=== PATIENT | female | born 1960 | race Caucasian/White ===

== ENCOUNTER 2016-03-15 11:07 | Outpatient (CLI) | payer MEDICAID ==
[~2016-03-15] VITALS: Ht 165.1 cm; Wt 87.2 kg
[~2016-03-15 11:07] MED LIST: ACYC400T21 PO; AMIT25TA9 PO; CITA20TA7 PO; D50KC PO; FURO40TA4 PO; HYDR-3812 PO; LACT20SO2 PO; LISI-552 PO; METF500T8 PO; MTF500T PO; MULT-35 PO; NAPR220T66 PO; ONDA4TAB10 PO; Oxycodone Hcl PO; POLY255P PO; PRD20T PO
--- OUTSIDE RECORDS SUMMARY | 2016-03-15 11:11 | XMS REPORT | Continuity of Care Document ---
Author Author [facility] Organization [facility] Address Unknown Phone Unavailable Care Team Providers Care Ultrasonic Solderer Name Role Phone Mouna Wang PCP [phone] Source Comments Some departments are not documenting in the electronic medical record. If you do not see the information that you expected, contact Release of Information in the Health Information Management department at [phone] for further assistance in locating additional records.[facility] Active Allergies and Adverse Reactions No Known Allergies Current Medications Prescription Sig. Disp. Refills Start End Date Status Date metFORMIN-XR(+) Take 500 mg by mouth Active (GLUCOPHAGE XR) 500 mg daily with dinner. extended release tablet furosemide (LASIX) 40 mg Take 40 mg by mouth twice Active tablet daily. lisinopril (PRINIVIL; Take 20 mg by mouth Active ZESTRIL) 20 mg tablet daily. citalopram (CELEXA) 20 mg Take 20 mg by mouth Active tablet daily. PEG 3350-Electrolytes Mix as directed on 4000 mL 0 11/20/19 Active (GOLYTELY) oral solution package. Drink 240ml 16 (8oz) every 10 minutes until gone. Refrigerate once mixed. spironolactone Take 1 Tab by mouth 30 Tab 5 11/30/19 Active (ALDACTONE) 100 mg tablet daily. Take with food. 16 ergocalciferol (VITAMIN Take 1 Cap by mouth twice 8 Cap 2 11/30/19 02/19/20 D-2) 50,000 unit capsule weekly for 24 doses. 16 16 Indications: VITAMIN D DEFICIENCY (HIGH DOSE THERAPY) Active Problems Problem Noted Date Ascites of liver 11/23/2015 Type 2 diabetes mellitus without complication (HCC) 11/23/2015 Tobacco abuse 11/23/2015 Localized edema 11/23/2015 Cirrhosis, cryptogenic (HCC) 11/20/2015 Most Recent Encounters Date Type Specialty Providers Description 12/17/2015 Hospital Adilene Amor APRN Other cirrhosis of liver Encounter 12/17/2015 Endo [facility] Mouna Albert ARNP 12/17/2015 Endo Rslt Mouna Albert ARNP 12/17/[address] Mann MD Event 12/17/2015 Surgery Rhonda Ellison MD COLONOSCOPY EXCISION LESION 12/16/2015 Documentation Transplant Surgery Renetta Johnston MD 12/16/2015 Telephone Transplant Surgery Kavitha Finn, [facility] Only 12/15/2015 Telephone Transplant Surgery Renetta Johnston MD Patient Questions - Pt returned my call from 12/14/15 and she confirmed EGD/Colonoscopy appt for 12/17/15 and that she received the instructions. Checked with pt about dates and times of scheduling her Dexa and US Abd at [facility]. Will call the pt with information. RP 12/14/2015 Telephone Transplant Surgery Renetta Johnston MD Patient Reminder Call - Called pt to confirm EGD/Colonoscopy appt for 12/17/15 at 3:50 p.m., nalm on both phones. Also, need to confirm dates and times for DEXA scan and US Abd in December [facility]. RP Social History Tobacco Use Types Packs/Day Years Used Date Current Every Day Smoker Cigarettes 0.5 Tobacco Cessation: Ready to Quit: Yes; Counseling Given: Yes Comments: Alcohol Use Drinks/Week oz/Week Comments No 0 Standard 0.0 drinks or equivalent Last Filed Vital Signs Vital Sign Reading Time Taken Blood Pressure 99/49 12/17/2015 4:21 PM CDT Pulse 71 12/17/2015 4:21 PM CDT Temperature 36.9 C (98.4 F) 12/17/2015 2:55 PM CDT Respiratory Rate - - Height 1.676 m (5' 6") 12/17/2015 3:01 PM CDT Weight 88.451 kg (195 lb) 12/17/2015 3:01 PM CDT Body Mass Index 31.49 12/17/2015 3:01 PM CDT Oxygen Saturation 100% 12/17/2015 4:21 PM CDT Plan of Care Date Type Specialty Providers Description 03/25/2016 Appointment Transplant Surgery Renetta Johnston MD [address] [place] [address] [phone] (Fax) Health Maintenance Due Date Last Done Comments Hepatitis C Screening 1960 Physical (Comprehensive) 1969 Exam Pertussis Vaccine 1973 Tetanus Vaccine 05/26/1979 Dilated Eye Exam 1980 Foot Exam 1980 Microalbumin 1980 Pneumonia Vaccine (Dm) 1980 Cervical Cancer Screening 05/26/1983 Breast Cancer Screening 2002 Influenza Vaccine 11/12/2015 Hba1c 05/19/2016 11/20/2015 Colorectal Cancer 12/16/2025 12/17/2015, 12/17/2015, 12/17/2015 Screening Procedures from Last 3 Months Procedure Name Priority Date/Time Associated Diagnosis Comments COLONOSCOPY EXCISION 12/17/2015 Colon cancer screening LESION 3:50 PM CDT Special Needs 1st Call - EGD / Colonoscop y - Cld pt & sched appt 11/23/15 @ 1216 / Pt is aware she is w/Dr Ellison COLONOSCOPY 12/17/2015 Colon cancer screening 3:50 PM CDT Special Needs 1st Call - EGD / Colonoscop y - Cld pt & sched appt 11/23/15 @ 1216 / Pt is aware she is w/Dr Ellison ESOPHAGOGASTRODUODENOSCOP 12/17/2015 Colon cancer screening Y 3:50 PM CDT Special Needs 1st Call - EGD / Colonoscop y - Cld pt & sched appt 11/23/15 @ 1216 / Pt is aware she is w/Dr Ellison Results from Last 3 Months COLONOSCOPY (12/17/2015 3:22 PM) Component Value Range Provation Report Patient Name: Henrry Mcfarlane Procedure Date: 12/17/2015 3:22 PM CSN: [id number] Date of : 1960 Gender: Female Attending Physician: Rhonda Ellison MD Procedure: Colonoscopy Indications: Sc reening for colorectal malignant neoplasm Providers: Rhonda Ellison MD (Doctor), Boris Tatum RN (Nurse), Tamiko Molina Supercalender Operator (Supercalender Operator) Referring Physician: Adilene Pelaez Medications: Pr opofol per Anesthesia Complications: No immediate complications. Estimated blood loss: Minimal. Procedure: Pre-Anesthesia Assessment: - Prior to the procedure, a History and Physical was performed, and patient medications, allergies and sensitivities were reviewed. The patient's tolerance of previous anesthesia was reviewed. - The risks and benefits of the procedure and the sedation options and risks were discussed with the patient. All questions were answered and informed consent was obtained. - Patient identification and proposed procedure were verified prior to the procedure by the physician and the nurse. The procedure was verified in the procedure room. - Prior to the procedure, a History and Physical was performed, and patient medications and allergies were reviewed. The patient's tolerance of previous anesthesia was also reviewed. The risks and benefits of the procedure and the sedation options and risks were discussed with the patient. All questions were answered, and informed consent was obtained. Prior Anticoagulants: The patient has taken no previous anticoagulant or antiplatelet agents. ASA Grade Assessment: IV - A patient with severe systemic disease that is a constant threat to life. After reviewing the risks and benefits, the patient was deemed in satisfactory condition to undergo the procedure. After I obtained informed consent, the scope was passed under direct vision. Throughout the procedure, the patient's blood pressure, pulse, and oxygen saturations were monitored continuously. The Colonoscope [id number] was introduced through the anus and advanced to the cecum, identified by appendiceal orifice and ileocecal valve. The colonoscopy was performed without difficulty. The patient tolerated the procedure well. The quality of the bowel preparation was good. The ileocecal valve, appendiceal orifice, and rectum were photographed. Findings: The perianal and digital rectal examinations were normal. A diminutive polyp was found in the sigmoid colon. The polyp was sessile. The polyp was removed with a cold biopsy forceps. Resection and retrieval were complete. The entire examined colon appeared otherwise normal on direct and retroflexion views. Impression: - One diminutive polyp in the sigmoid colon. Resected and retrieved. - The entire examined colon is normal on direct and retroflexion views. Estimated Blood Loss: Estimated blood loss was minimal. Recommendation: - Discharge patient to home (ambulatory). - Resume previous diet today. - Continue present medications. - Await pathology results. - Repeat colonoscopy in 3 - 5 years for surveillance based on pathology results. - Return to referring physician as previously scheduled. Scope In: 3:24:06 PM Scope Out: 3:44:52 PM Scope Withdrawal Time 0 hours 13 minutes 48 seconds Total Procedure Duration Time 0 hours 20 minutes 46 seconds Procedure Code(s): --- Professional --- 18384, Colonoscopy, flexible; with biopsy, single or multiple Diagnosis Code(s): --- Professional --- Z12.11, Encounter for screening for malignant neoplasm of colon D12.5, Benign neoplasm of sigmoid colon CPT copyright 2015 [employer]. All rights reserved. The codes documented in this report are preliminary and upon clinical research specialist review may be revised to meet current compliance requirements. Attending Participation: I personally performed the entire procedure. MD Rhonda Saleem MD 12/17/2015 3:51:27 PM The attending physician has electronically signed and finalized this document. Number of Addenda: 0 Note Initiated On: 12/17/2015 3:22 PM EGD (12/17/2015 3:09 PM) Component Value Range Provation Report Patient Name: Henrry Mcfarlane Procedure Date: 12/17/2015 3:09 PM CSN: [id number] Date of : 1960 Gender: Female Attending Physician: Rhonda Ellison MD Procedure: Upper GI endoscopy Indications: Ci rrhosis rule out esophageal varices Providers: Rhonda Ellison MD (Doctor), Boris Tatum RN (Nurse), Edson Ortizician (Supercalender Operator) Referring Physician: Adilene Pelaez Medications: Pr opofol per Anesthesia Complications: No immediate complications. Estimated blood loss: None. Procedure: Pre-Anesthesia Assessment: - Prior to the procedure, a History and Physical was performed, and patient medications, allergies and sensitivities were reviewed. The patient's tolerance of previous anesthesia was reviewed. - The risks and benefits of the procedure and the sedation options and risks were discussed with the patient. All questions were answered and informed consent was obtained. - Patient identification and proposed procedure were verified prior to the procedure by the physician and the nurse. The procedure was verified in the procedure room. - Prior to the procedure, a History and Physical was performed, and patient medications and allergies were reviewed. The patient's tolerance of previous anesthesia was also reviewed. The risks and benefits of the procedure and the sedation options and risks were discussed with the patient. All questions were answered, and informed consent was obtained. Prior Anticoagulants: The patient has taken no previous anticoagulant or antiplatelet agents. ASA Grade Assessment: IV - A patient with severe systemic disease that is a constant threat to life. After reviewing the risks and benefits, the patient was deemed in satisfactory condition to undergo the procedure. After obtaining informed consent, the endoscope was passed under direct vision. Throughout the procedure, the patient's blood pressure, pulse, and oxygen saturations were monitored continuously. The Endoscope 6587 was introduced through the mouth, and advanced to the third part of duodenum. The upper GI endoscopy was accomplished without difficulty. The patient tolerated the procedure well. Findings: Grade II varices were found in the lower third of the esophagus. They were medium in size. No stigmata of recent bleeding or high risk features. Mild portal hypertensive gastropathy was found in the entire examined stomach. No gastric varices identified. The examined duodenum was normal. Impression: - Grade II esophageal varices. - Portal hypertensive gastropathy. No gastric varices. - Normal examined duodenum. - No specimens collected. Estimated Blood Loss: Estimated blood loss: none. Recommendation: - Discharge patient to home (ambulatory). - Resume previous diet today. - Continue present medications. - Repeat the upper endoscopy in 1 year for surveillance. - Return to liver clinic as previously scheduled. - Patient has a contact number available for emergencies. The signs and symptoms of potential delayed complications were discussed with the patient. Return to normal activities tomorrow. Written discharge instructions were provided to the patient. - Return to normal activities tomorrow. Scope In: 3:14:10 PM Scope Out: 3:19:34 PM Total Procedure Duration Time 0 hours 5 minutes 24 seconds Procedure Code(s): --- Professional --- 87233, Esophagogastroduodenoscopy, flexible, transoral; diagnostic, including collection of specimen(s) by brushing or washing, when performed (separate procedure) Diagnosis Code(s): --- Professional --- K74.60, Unspecified cirrhosis of liver I85.10, Secondary esophageal varices without bleeding K76.6, Portal hypertension K31.89, Other diseases of stomach and duodenum CPT copyright 2015 [employer]. All rights reserved. The codes documented in this report are preliminary and upon clinical research specialist review may be revised to meet current compliance requirements. Attending Participation: I personally performed the entire procedure. MD Rhonda Saleem MD 12/17/2015 3:57:46 PM The attending physician has electronically signed and finalized this document. Number of Addenda: 0 Note Initiated On: 12/17/2015 3:09 PM POC GLUCOSE (12/17/2015 2:58 PM) Component Value Range Glucose, POC 95 70-100 MG/DL FERRITIN (12/17/2015 1:47 PM) Component Value Range Ferritin 57 10-200 NG/ML Specimen Blood BASIC METABOLIC PANEL (12/17/2015 1:47 PM) Component Value Range Sodium 134 (L) 137-147 MMOL/L Potassium 3.7 3.5-5.1 MMOL/L Chloride 101 98-110 MMOL/L CO2 26 21-30 MMOL/L Anion Gap 7 3-12 Glucose 104 (H) 70-100 MG/DL Blood Urea Nitrogen 7 7-25 MG/DL Creatinine 0.55 0.4-1.00 MG/DL Calcium 8.3 (L) 8.5-10.6 MG/DL eGFR Non >60Comment: >60 mL/min The eGFR is not validated for use in drug dosing adjustments. Continue to use estimated creatinine clearance per dosing reference text. Please contact the Clinical Pharmacist for questions. eGFR >60Comment: >60 mL/min The eGFR is not validated for use in drug dosing adjustments. Continue to use estimated creatinine clearance per dosing reference text. Please contact the Clinical Pharmacist for questions. Specimen Blood SURGICAL PATHOLOGY (12/17/2015 7:53 AM) Component Value Range PATHOLOGY REPORT [facility] [email or web address] Minna Noel MD, PhD, Director of Anatomic Pathology Department of Pathology and Laboratory Medicine [address] [place] [id number] Surgical Pathology Office: [phone] SURGICAL PATHOLOGY REPORT NAME: MAEVE MODI SURG PATH #: [id number] MR #: [id number] SPECIMEN CLASS: SR BILLING #: [id number] ALT ID #: LOCATION: [facility] DATE OF PROCEDURE: 12/17/2015 AGE: 55 SEX: F DATE RECEIVED: 12/18/2015 : 1960 TIME RECEIVED: 07:53 PHYSICIAN: RHONDA ELLISON DATE OF REPORT: 12/21/2015 COPY TO: DATE OF PRINTIN12/21/2015 ################################################## ###################### Final Diagnosis: A. Colonic mucosa, "sigmoid polyp", biopsy: Hyperplastic polyp. Attestation: By this signature, I attest that I have personally formulated the final interpretation expressed in this report and that the above diagnosis is based upon my examination of the slides and/or other material indicated in this report. +++Electronically Signed Out By+++ gt/12/18/2015 Interpreted by: Nehemiah Kilgore M.D. Resident 12/21/2015 ################################################## ###################### Material Received: A: sigmoid polyp History: 55-year-old female with a history of colon cancer screening, cirrhosis, cryptogenic. Gross Description: A. Received in formalin labeled "sigmoid polyp" is a 0.6 x 0.5 x 0.3 cm aggregate of holliday-brown soft tissue fragments. The specimen is entirely submitted in cassette A1. (tn) holliday/12/18/2015 Pablo Castrejon M.D. Resident
[2016-03-15] MEDS ORDERED: BUPR-42 PO (16:04)
[2016-03-16] MEDS ORDERED: PANT40TA2 PO (12:27)
== END 2016-03-15 16:06 ==
LOC: PREOP 11:07
PROVIDERS: ATTEND Surgery Pediatric Surgery
DX: Z01.818 Encounter for other preprocedural examination (principal); R19.8 Other specified symptoms and signs involving the digestive system and abdomen; R10.9 Unspecified abdominal pain; R11.2 Nausea with vomiting, unspecified

== ENCOUNTER 2016-03-16 09:38 | Day surgery (SDC) | payer MEDICAID ==
[~2016-03-16] VITALS: Ht 165.1 cm; Wt 87.2 kg
[~2016-03-16 09:38] MED LIST changes: +BUPR-42 PO
--- OUTSIDE RECORDS SUMMARY | 2016-03-16 09:42 | XMS REPORT | Continuity of Care Document ---
Author Author [facility] Organization [facility] Address Unknown Phone Unavailable Care Team Providers Care Air Hammer Stripper Name Role Phone Mouna Wang PCP [phone] Source Comments Some departments are not documenting in the electronic medical record. If you do not see the information that you expected, contact Release of Information in the Health Information Management department at [phone] for further assistance in locating additional records.[facility] Active Allergies and Adverse Reactions No Known [...] Johnston MD 12/16/2015 Telephone Transplant Surgery Kavitha Finn RN Labs Only 12/15/2015 Telephone Transplant Surgery Renetta Johnston MD Patient Questions - Pt returned my call from 12/14/15 and she confirmed EGD/Colonoscopy appt for 12/17/15 and that she received the instructions. Checked with pt about dates and times of scheduling her Dexa and US Abd at [facility]. Will call the pt with information. RP Social History Tobacco Use Types Packs/Day [...] Appointment Transplant Surgery Renetta Johnston MD [address] [place] [address] [phone] (Fax) Health Maintenance Due Date Last Done [...] Mcfarlane Procedure Date: 12/17/2015 3:22 PM CSN: [id number] Date of : 1960 Gender: Female Attending Physician: Rhonda Ellison MD Procedure: Colonoscopy Indications: Sc reening for colorectal malignant neoplasm Providers: Rhonda Ellison MD (Doctor), Boris Tatum RN (Nurse), Tamiko Molina Incinerator Plant Laborer (Incinerator Plant Laborer) Referring Physician: Adilene Pelaez Medications: Pr opofol [...] 46 seconds Procedure Code(s): --- Professional --- 40829, Colonoscopy, flexible; with biopsy, single or multiple Diagnosis Code(s): --- Professional --- Z12.11, Encounter for screening for malignant neoplasm of colon D12.5, Benign neoplasm of sigmoid colon CPT copyright 2015 [employer]. All rights reserved. The codes documented in this report are preliminary and upon irish moss operator review may be revised to meet current compliance requirements. Attending Participation: I personally performed the entire procedure. MD Rhonda Saleem MD 12/17/2015 3:51:27 PM The attending physician has electronically signed and finalized this document. Number of Addenda: 0 Note Initiated On: 12/17/2015 3:22 PM EGD (12/17/2015 3:09 PM) Component Value Range Provation Report Patient Name: Henrry Mcfarlane Procedure Date: 12/17/2015 3:09 PM CSN: [id number] Date of : 1960 Gender: Female Attending Physician: Rhonda Ellison MD Procedure: Upper GI endoscopy Indications: Ci rrhosis rule out esophageal varices Providers: Rhonda Ellison MD (Doctor), Boris aTtum RN (Nurse), Tamiko Molina Incinerator Plant Laborer (Incinerator Plant Laborer) Referring Physician: Adilene Pelaez Medications: Pr opofol [...] 24 seconds Procedure Code(s): --- Professional --- 51484, Esophagogastroduodenoscopy, flexible, transoral; diagnostic, including collection of specimen(s) by brushing or washing, when performed (separate procedure) Diagnosis Code(s): --- Professional --- K74.60, Unspecified cirrhosis of liver I85.10, Secondary esophageal varices without bleeding K76.6, Portal hypertension K31.89, Other diseases of stomach and duodenum CPT copyright 2015 [employer]. All rights reserved. The codes documented in this report are preliminary and upon irish moss operator review may be revised to meet current [...] AM) Component Value Range PATHOLOGY REPORT [facility] [email or web address] Minna Noel MD, PhD, Director of Anatomic Pathology Department of Pathology and Laboratory Medicine [address] [place] [phone] Surgical Pathology Office: [phone] SURGICAL PATHOLOGY REPORT NAME: MAEVE MODI SURG PATH #: [id number] MR #: [id number] SPECIMEN CLASS: SR BILLING #: [id number] ALT ID #: LOCATION: [facility] DATE OF PROCEDURE: 12/17/2015 AGE: 55 SEX: [...]
--- OUTSIDE RECORDS SUMMARY | 2016-03-16 09:43 | XMS REPORT | Continuity of Care Document ---
Author Author [facility] Organization [facility] Address Unknown Phone Unavailable Care Team Providers Care Loan Adviser Name Role Phone Mouna Wang PCP [phone] Source Comments Some departments are not documenting in the electronic medical record. If you do not see the information that you expected, contact Release of Information in the Health Information Management department at [phone] for further assistance in locating additional records.[facility] Active Allergies and Adverse Reactions [...] her Dexa and US Abd at [facility]. Will call the pt with information. RP [...] Johnston MD [address] [place] [address] [phone] (Fax) Health Maintenance Due Date Last Done [...] Mcfarlane Procedure Date: 12/17/2015 3:22 PM CSN: [id number] Date of : 1960 Gender: Female Attending Physician: Rhonda Ellison MD Procedure: Colonoscopy Indications: Sc reening for colorectal malignant neoplasm Providers: Rhonda Ellison MD (Doctor), Boris Tatum RN (Nurse), Tamiko Molina Supervisor Cemetery Workers (Supervisor Cemetery Workers) Referring Physician: Adilene Pelaez Medications: Pr opofol [...] 46 seconds Procedure Code(s): --- Professional --- 35162, Colonoscopy, flexible; with biopsy, single or multiple Diagnosis Code(s): --- Professional --- Z12.11, Encounter for screening for malignant neoplasm of colon D12.5, Benign neoplasm of sigmoid colon CPT copyright 2015 [employer]. All rights reserved. The codes documented in this report are preliminary and upon channel marketing manager review may be revised to meet current compliance requirements. Attending Participation: I personally performed the entire procedure. MD Rhonda Saleem MD 12/17/2015 3:51:27 PM The attending physician has electronically signed and finalized this document. Number of Addenda: 0 Note Initiated On: 12/17/2015 3:22 PM EGD (12/17/2015 3:09 PM) Component Value Range Provation Report Patient Name: Henrry Mcfarlane Procedure Date: 12/17/2015 3:09 PM CSN: [id number] Date of : 1960 Gender: Female Attending Physician: Rhonda Ellison MD Procedure: Upper GI endoscopy Indications: Ci rrhosis rule out esophageal varices Providers: Rhonda Ellison MD (Doctor), Boris Tatum RN (Nurse), Tamiko Molina Supervisor Cemetery Workers (Supervisor Cemetery Workers) Referring Physician: Adilene Pelaez Medications: Pr opofol [...] 24 seconds Procedure Code(s): --- Professional --- 13613, Esophagogastroduodenoscopy, flexible, transoral; diagnostic, including collection of specimen(s) by brushing or washing, when performed (separate procedure) Diagnosis Code(s): --- Professional --- K74.60, Unspecified cirrhosis of liver I85.10, Secondary esophageal varices without bleeding K76.6, Portal hypertension K31.89, Other diseases of stomach and duodenum CPT copyright 2015 [employer]. All rights reserved. The codes documented in this report are preliminary and upon channel marketing manager review may be revised to meet current [...] AM) Component Value Range PATHOLOGY REPORT [facility] [email or web address] Minna Noel MD, PhD, Director of Anatomic Pathology Department of Pathology and Laboratory Medicine [address] [place] [phone] Surgical Pathology Office: [phone] SURGICAL PATHOLOGY REPORT NAME: MAEVE MODI SURG PATH #: [id number] MR #: [id number] SPECIMEN CLASS: SR BILLING #: [id number] ALT ID #: LOCATION: [facility] DATE OF PROCEDURE: 12/17/2015 AGE: 55 SEX: [...]
[2016-03-16] MEDS ORDERED: NS IV 500 ML 500 ML ONE ×2 (09:45→14:13)
[2016-03-16 09:55] VITALS: BP 123/85
[2016-03-16] MEDS ORDERED: NS IV 500 ML 500 ML IV PRN (10:05)
--- NOTE | 2016-03-16 10:27 | Conscious Sedation/ASA ---
Conscious Sedation Pre-Proced Time Reviewed: 10:20 ASA Class: 3 Airway Mallampati Classification: ([place] appropriate class) I. II. III, IV Lungs Heart ASA score ASA 1: a normal healthy patient ASA 2: a patient with a mild systemic disease (mid diabetes, controlled hypertension, obesity ASA 3: a patient with a severe systemic disease that limits activity (angina , COPD, prior Myocardial infarction) ASA 4: a patient with an incapacitating disease that is a constant threat to life (CHF, renal failure) ASA 5: a moribund patient not expected to survive 24 hrs. (ruptured aneurysm) ASA 6: a declared brain patient whose organs are being harvested. For emergent operations, add the letter E after the classification Grade 2 Sedation Plan: Analgesia, Amnesia, Plan communicated to team members, Discussed options with patient/fam, Discussed risks with patient/fam Note The patient is an appropriate candidate to undergo the planned procedure, sedation, and anesthesia. The patient immediately re-assessed prior to indication. ERNIE CASTRO MD Mar 16, 2016 10:27 am
--- NOTE | 2016-03-16 10:27 | Progress Note-Pre Operative ---
Pre-Operative Progress Note H&P Reviewed The H&P was reviewed, patient examined and no changes noted. Date H&P Reviewed: Mar 16, 2016 Time H&P Reviewed: 10:20 Pre-Operative Diagnosis: abdominal pain, ascites ERNIE CASTRO MD Mar 16, 2016 10:27 am
[2016-03-16] MEDS ORDERED: FLUMAZENIL (ROMAZICON) 0.1 MG/ML 5 ML VIAL INJ PRN (10:30)
[2016-03-16] MEDS ORDERED: ACETAMINOPHEN 325 MG TABLET/CAPLET (TYLENOL) PO PRN (10:30)
[2016-03-16] MEDS ORDERED: ONDANSETRON 4 MG/2 ML (SDV) Z0FRAN IV PRN (10:30)
[2016-03-16] MEDS ORDERED: NALOXONE 0.4 MG/ML 1 ML (NARCAN) VIAL IVP PRN (10:30)
[2016-03-16] MEDS ORDERED: morphine INJ 10 MG/ML 1ML (SYR OR VIAL) IV PRN (10:30)
[2016-03-16] MEDS ORDERED: HYDROcodone/APAP 5 MG/325 MG (LORTAB) TAB PO PRN (10:30)
[2016-03-16] MEDS ORDERED: HURRICAINE EXT TUBE (BENZOCAINE) XX PRN (10:30)
[2016-03-16] MEDS ORDERED: LIDOCAINE JELLY 2% (XYLOCAINE) 5 ML TUBE MM PRN (10:30)
[2016-03-16] MEDS ORDERED: LIDOCAINE JELLY 2% (XYLOCAINE) 5 ML TUBE ONE (11:13)
[2016-03-16] MEDS ORDERED: fentaNYL INJECTION 100 MCG/2 ML AMP ONE ×2 (11:13)
[2016-03-16] MEDS ORDERED: MIDAZOLAM 2 MG/2 ML (VERSED) VIAL ONE ×5 (11:13→11:14)
[2016-03-16] MEDS ORDERED: HURRICAINE EXT TUBE (BENZOCAINE) ONE (11:14)
[2016-03-16] MEDS: fentaNYL INJECTION 100 MCG/2 ML AMP IVP PRN ×2 (11:40→11:43)
[2016-03-16] MEDS: MIDAZOLAM 2 MG/2 ML (VERSED) VIAL IVP PRN ×2 (11:42→11:46)
[2016-03-16] MEDS ORDERED: PANT40TA2 PO (12:27)
--- NOTE | 2016-03-16 12:27 | Progress Note-Post Operative ---
Post-Operative Progess Note Pre-Operative Diagnosis abdominal pain, ascites Post-Operative Diagnosis reflux esophagitis(class B), esophageal varices, hiatal hernia(2cm), moderate gastritis. Post-Op Procedure Note Date of Procedure: Mar 16, 2016 Name of Procedure: EGD with bx. Paracentesis Anesthesia Type CS, local Estimated blood loss (mL): minimal Specimen(s) collected antrum ERNIE CASTRO MD Mar 16, 2016 12:27 pm
--- NOTE | 2016-03-16 12:28 | Discharge Inst-Surgical ---
D/C Lap Instructions-KIDO New, Converted, or Re-Newed RX: RX on Chart Follow Up PRN Activity as tolerated High Fiber Diet 25g or more per day Avoid Alcohol, Caffeine, Spicy Tavernier and Acid foods. Drink 64 fluid oz or more of fluids per day. Symptoms to Report: Fever over 101 degree F, Nausea/Vomiting If any problems/questions: Contact your physician or go to Emergency Room ERNIE CASTRO MD Mar 16, 2016 12:28 pm
[2016-03-16 12:45] VITALS: BP 110/63
[2016-03-16 13:10] VITALS: BP 108/72
[2016-03-16 14:00] VITALS: BP 94/63
[2016-03-16 15:10] VITALS: BP 103/72
[2016-03-16 16:00] VITALS: BP 103/72
--- NOTE | 2016-03-17 11:35 | OPERATIVE REPORT ---
PROCEDURE PHYSICIAN: ERNIE TORRES DATE OF PROCEDURE: 03/16/2016 ATTENDING PROPERTY MANAGEMENT ACCOUNTANT: Mouna Wang APRN. PREOPERATIVE DIAGNOSIS: 1. Gastroesophageal reflux disease. 2. Heartburn. 3. Abdominal pain. 4. Ascites. POSTOPERATIVE DIAGNOSIS: 1. Esophageal varices. 2. Chronic class B reflux esophagitis no strictures. 3. Small hiatal hernia, approximately 2 to 2.5 cm in size. 4. Moderate severity gastritis. PROCEDURE: 1. EGD with biopsy. 2. Paracentesis under ultrasound guidance. SURGEON: Dr. Torres. ANESTHESIA: Conscious sedation and local. ESTIMATED BLOOD LOSS: Minimal. FINDINGS: EGD: 1. Reflux esophagitis, class B. 2. With esophageal varices. 3. No ulcers or strictures and no bleeding. 4. Small hiatal hernia, approximately 2 to 2.5 cm in size. 5. Moderate severity gastritis. 6. No formal ulcers, polyps or any neoplasms identified. PARACENTESIS: Straw, yellow, transudative fluid. DISPOSITION: The patient tolerated the procedure well. Ms. Maeve Sales is a 55-year-old female who was seen approximately one month ago for ascites. On 06/12/2014 she started developing back pain, as well as lower extremity swelling, which has progressed. She states that several months ago she had worsening abdominal distention and had an ultrasound performed, which did show cirrhosis of the liver, as well as splenomegaly and ascites. She was seen by hepatology at [facility] and did undergo an EGD and colonoscopy at that time. She was found to have esophageal varices and a polyp identified on colonoscopy which was benign. She also underwent a paracentesis at that time. She was seen in the office recently with worsening episodes of reflux, as well as nausea and intermittent episodes of emesis. She does not report any issues with hematemesis. She has also had recurrent ascites with abdominal distention and a positive fluid shift wave. We will proceed with EGD and biopsy, as well as paracentesis. PROCEDURE: The patient was brought to the endoscopy suite, laid in left lateral decubitus position with the head slightly elevated. After adequate IV pain and sedative medications and conscious sedation anesthesia, the mouthpiece was applied. The endoscope was placed in the mouth, visualizing the pharynx and hypopharyngeal region. Vocal cords, epiglottis and vallecula identified and appeared to be normal. The endoscope was then gently intubated into the esophagea opening and the esophagus insufflated. The endoscope was then advanced through the first, second, and 3rd portions esophagus. At the level of the GE junction esophageal varices were identified. There was no active bleeding identified. There was reflux esophagitis [place] class B with no ulcers or strictures identified. The endoscope was then easily advanced into stomach and endoscope retroflexed visualizing a small hiatal hernia, approximately 2 to 2.5 cm in size. There was a moderate severity gastritis also noted. There were no formal ulcers, polyps or any neoplasms identified. A biopsy was taken of the stomach antrum, with forceps with visualization of good hemostasis. The endoscope was then advanced through the pylorus and into the first and second portions of duodenum which appeared normal. The endoscope was then slowly withdrawn while taking a second look and suctioning residual air with no additional findings. The patient tolerated the procedure well. We will have her continue with medical management with smaller, more frequent meals, avoidance of eating at night, as well as head elevation while lying supine. For her reflux esophagitis, hiatal hernia, as well as gastritis, we will start her on Protonix 40 mg daily as well. Under the same conscious sedation anesthesia, the abdomen was prepped and draped in the standard surgical fashion. Before the procedure an ultrasound was performed and the right lower abdominal quadrant was marked for paracentesis. The skin, subcutaneous tissue, muscle, wall layers, as well as the peritoneal lining were then anesthetized using 1% lidocaine. A vertical skin incision was then made using a 15 blade. The trocar and catheter were then inserted with straw, yellow, transudative fluid drawn out. The catheter was then advanced over the trocar without any resistance. The catheter was then connected to tubing as well as gravity drainage bag in a sterile manner. The catheter was then covered with sterile gauze dressing and OpSite. The patient tolerated the procedure well. We will continue with drainage until the patient is asymptomatic or there is minimal drainage and then remove the catheter. She will be instructed to follow-up as needed. Job ID: [id number] Dictated Date: 03/16/2016 12:22:19 Test Fixture Assembler Date: 03/17/2016 11:23:58 / anthony LIZARRAGA
--- NOTE | 2016-03-17 11:37 | HISTORY AND PHYSICAL ---
DICTATION BY: James Corona APRN DATE OF ADMISSION: 03/16/2016 ATTENDING CLINICIAN: Anna Wang APRN Miss Maeve Sales is a 55-year-old female who is known to us. She was initially seen by us approximately one month ago for ascites. She had reported in 06/12/2014. She did start developing some symptoms back pain as well as swelling. She reports that as time progressed. This became worse and reports her approximately 2 months ago she did have an abdominal ultrasound performed which did show cirrhosis, as well as mild to moderate splenomegaly and a large amount of ascites. She reports that she does see a skin fitter at [facility]. She reports that approximately a month ago that she did have an episode of vomiting as well as diarrhea and nausea and black stools. She reports that she does occasionally have episodes of reflux. She also reports of pain on the left side does that does radiate towards her back. Upon further questioning, she does report that she did have an EGD, as well as a colonoscopy in the past and reports that she did have a polyp found on her colonoscopy along with varices on EGD. At that time she did undergo a paracentesis. As she reports today a one month history of nausea and vomiting and she reports that this does occur on a daily basis and reports that she usually does have multiple, multiple episodes throughout the day. She reports that she was started on Zofran 3 times a day as needed for her nausea and reports this has not helped. She denies any hematemesis. She also reports again in need of a paracentesis at the same time. She denies any fever or chills, as well as no shortness of breath or difficulty breathing. PAST MEDICAL HISTORY: 1. Type 2 diabetes mellitus. 2. Hypertension. 3. Hyperlipidemia. 4. Edema. 5. Vitamin D deficiency. 6. Anxiety. 7. Depression. 8. Cardiac murmurs. 9. Bates's palsy. 10. Cirrhosis. PAST SURGICAL HISTORY: 1. Complete hysterectomy 1988. 2. in 1985. 3. Cholecystectomy. ALLERGIES: No known drug allergies. MEDICATIONS: 1. Lactulose 10 grams t.i.d. for 30 days. 2. Oxycodone 5 mg b.i.d. p.r.n. 3. Vitamin D 5000 units 1 tablet by mouth every Monday and Monday. 4. Metformin 500 mg or 2 tablets by mouth b.i.d. 5. Multivitamin daily. 6. Zofran 4 mg, t.i.d., p.r.n. 7. Amitriptyline 25 mg at bedtime. 8. Hydrocodone 5/125 mg 1 tablet by mouth t.i.d. p.r.n. 9. Lisinopril 20 mg daily. 10. Naproxen 440 mg b.i.d. p.r.n. 11. MiraLAX 17 grams daily p.r.n. SOCIAL HISTORY: Positive for smoking 3 to 5 cigarettes per day for the last 30 years, negative for alcohol. FAMILY HISTORY: Mother with stroke around 78 years of age. Father and sister with hypertension. Paternal grandmother myocardial infarction. Vital signs blood pressure is 110/50. Current weight is 204.3 pounds at 5' 5". REVIEW OF SYSTEMS: This is a well nourished female in no acute distress. She is not experiencing any shortness of breath or difficulty breathing. No chest pain, palpitations, or diaphoresis. She does report that daily episodes of nausea and vomiting as well as diffuse abdominal pain. No diarrhea or constipation. No red blood per rectum. No dark tarry stools. No hematemesis. No fever or chills. No recent inadvertent weight loss. PHYSICAL EXAM: CHEST: Clear. HEART: Regular. Extremities 2+ lower extremity edema. Negative Homans sign. HEENT: No scleral icterus. No cervical adenopathy. ABDOMEN: Abdomen is firm and distended. There is no pain with palpation. There is no a fluid wave noted at this time. ASSESSMENT AND PLAN: This is a 55-year-old female with liver cirrhosis and ascites as a well nausea, vomiting for the past month. At this time we will proceed with a EGD as well as a paracentesis. The risk and benefits of the procedure as well as the procedure and home care instructions were explained to the patient. The patient verbalized understanding of instructions and agrees to proceed as planned. At this time we will proceed with scheduling patient for an EGD and then we will proceed with a paracentesis afterwards and will have ultrasound yuri the spot prior to the procedure. Job ID: [id number] Dictated Date: 03/15/2016 13:14:00 [place] Worker Date: 03/15/2016 13:29:46/anthony
--- NOTE | 2016-03-24 14:06 | Diagnostic Imaging Report ---
PROCEDURE: US Abdomen, limited. TECHNIQUE: Multiple realtime grayscale images were obtained over the abdomen in various projections. INDICATION: EXAMINATION: Ultrasound of the abdomen Technique: Dedicated ultrasound of the abdomen was performed for evaluation for ascites and marking of paracentesis. Indication: Ascites FINDINGS: There is a large ascites. An appropriate area is marked for paracentesis. IMPRESSION: Ascites. Dictated by: Dictated on workstation # [id number]
== END 2016-03-16 16:00 | disposition home or self-care (01) ==
LOC: SDC 09:38
PROVIDERS: ATTEND Surgery Pediatric Surgery
DX: I85.00 Esophageal varices without bleeding (principal); R18.8 Other ascites; K21.0 Gastro-esophageal reflux disease with esophagitis; K44.9 Diaphragmatic hernia without obstruction or gangrene; K29.70 Gastritis, unspecified, without bleeding; E11.9 Type 2 diabetes mellitus without complications; I10 Essential (primary) hypertension; E78.5 Hyperlipidemia, unspecified; E55.9 Vitamin D deficiency, unspecified; F41.9 Anxiety disorder, unspecified; F32.9 Major depressive disorder, single episode, unspecified; K74.60 Unspecified cirrhosis of liver; F17.210 Nicotine dependence, cigarettes, uncomplicated
CPT/HCPCS: 76705

== ENCOUNTER 2016-03-19 14:56 | Inpatient (IN) | payer MEDICAID ==
[~2016-03-19] VITALS: Ht 165.1 cm; Wt 84.0 kg
[~2016-03-19 14:56] MED LIST changes: +PANT40TA2 PO
--- OUTSIDE RECORDS SUMMARY | 2016-03-19 15:01 | XMS REPORT | Continuity of Care Document ---
Author Author [facility] Organization [facility] Address Unknown Phone Unavailable Care Team Providers Care Roll Up Helper Name Role Phone Mouna Wang PCP [phone] Source Comments Some departments are not documenting in the electronic medical record. If you do not see the information that you expected, contact Release of Information in the Health Information Management department at [phone] for further assistance in locating additional records.[facility] Active Allergies and Adverse Reactions No [...] Localized edema 11/23/2015 Cirrhosis, cryptogenic (HCC) 11/20/2015 Social History Tobacco Use Types Packs/Day Years [...] Appointment Transplant Surgery Renetta Johnston MD [address] [facility] [address] [place] [address] [phone] (Fax) Health Maintenance Due Date Last Done Comments Hepatitis C Screening 1962 Physical (Comprehensive) 1969 Exam Pertussis Vaccine 1973 Tetanus Vaccine 05/26/1979 Dilated Eye Exam 1980 Foot Exam 1980 Microalbumin 1980 Pneumonia Vaccine (Dm) 1980 Cervical Cancer Screening 05/26/1983 Breast Cancer Screening 2002 Influenza Vaccine 11/12/2015 Hba1c 05/19/2016 11/20/2015 Colorectal Cancer 12/16/2025 12/17/2015, 12/17/2015, 12/17/2015 Screening Results from Last 3 Months Not on file
--- NOTE | 2016-03-19 15:34 | ED General ---
General Chief Complaint: General Problems/Pain Stated Complaint: DIZZINESS/DISORIENTED Nursing Triage Note: Pt presents to ED with c/o dizziness and confusion that began on Monday. Pt had paracentesis done on by Dr. Egan, this is the 2nd time she has been drained. After both times pt has become confused and dizzy, pt was told to come to ED if symptoms started after being drained again. A&OX 4 in triage. Nursing Sepsis Screen: No Definite Risk Source of Information: Patient, Family History of Present Illness Time Seen by Provider: 15:31 Initial Comments This 55-year-old female presents with confusion following paracentesis by Dr. Torres yesterday. Patient has a history of liver failure. The patient and her deny associated fever, vomiting, diarrhea, dysuria, headache, photophobia, or stiff neck. Allergies and Home Medications Allergies Coded Allergies: No Known Drug Allergies (Unverified , 03/03/16) Home Medications 5 MG TAB #60 5 MG PO BID PRN PRN SEVERE PAIN . Prescribed by: JEEVAN CAUSEY on 03/05/16 0933 Bupropion HCl 150 Mg Tab.er.24h 150 MG PO DAILY (Reported) Ergocalciferol (Vitamin D2) 50,000 Unit Capsule 50,000 UNITS PO , (Reported ) Lactulose 20 Gm/30 Ml Solution 30Days 10 GM PO TID Hold dose for diarrhea. Prescribed by: JEEVAN CAUSEY on 03/05/1633 Metformin HCl 500 Mg Tab.er.24h 1,000 MG PO BID WITH MEALS (Reported) TAKES 2 (500MG) TABLETS Multivitamin 1 Each Tablet 1 TAB PO DAILY (Reported) Ondansetron HCl 4 Mg Tablet 4 MG PO TID PRN PRN NAUSEA/VOMITING (Reported) Pantoprazole Sodium 40 Mg Tablet. #90 40 MG PO DAILY Prescribed by: ERNIE TORRES on 03/16/16 1227 Constitutional: No chills, No fever EENTM: other Respiratory: No cough (scleral icterus) Cardiovascular: No chest pain Gastrointestinal: other (abdominal distention from ascites) Genitourinary: No dysuria, No frequency Musculoskeletal: No back pain Skin: No rash Psychiatric/Neurological: No Symptoms Reported Hematologic/Lymphatic: No Symptoms Reported Past Yvesbze-Dpwokz-Lvznke Hx Patient Social History Type Used: Cigarettes Recent Foreign Travel: No Contact w/Someone Who Travel: No Recent Infectious Disease Expo: No Recent Hopitalizations: No Immunizations Up To Date Tetanus Booster (TDap): Unknown Seasonal Allergies Seasonal Allergies: No Surgeries HX Surgeries: Yes (PARACENTESIS) Surgeries: Section, Gallbladder, Hysterectomy Respiratory Hx Respiratory Disorders: No Cardiovascular Hx Cardiac Disorders: No Neurological Hx Neurological Disorders: No Reproductive System Hx Reproductive Disorders: No PESTICIDE USE MEDICAL COORDINATOR History: Hysterectomy Genitourinary Hx Genitourinary Disorders: No Gastrointestinal Hx Gastrointestinal Disorders: Yes Gastrointestinal Disorders: Chronic Constipation, Polyps, Cirrhosis Musculoskeletal Hx Musculoskeletal Disorders: Yes Musculoskeletal Disorders: Arthritis Endocrine Hx Endocrine Disorders: Yes Endocrine Disorders: Diabetes, Non-Insulin dep HEENT HX ENT Disorders: No Cancer Hx Cancer: No Psychosocial Hx Psychiatric Problems: Yes Behavioral Health Disorders: Anxiety, Depression Integumentary HX Skin/Integumentary Disorder: No Blood Transfusions Hx Blood Disorders: No Reviewed Nursing Assessment Reviewed/Agree w Nursing PMH: Yes Family Medical History Significant Family History: Asthma, Heart Disease Family Medial History: Cardiovascular disease 03 MOTHER Family history: Asthma 03 FATHER 09 SISTER Family history: Hypertension 03 FATHER Hypercholesterolemia 03 MOTHER Physical Exam Vital Signs Vital Sign - Last 12Hours 03/19/16 15:08 Temp 98.8 Pulse 113 Resp 20 B/P 127/86 Pulse Ox 100 O2 Delivery Room Air Capillary Refill : Less Than 3 Seconds General Appearance: No Apparent Distress Chronically ill Eyes: Bilateral Eye Scleral Icterus HEENT: Normal ENT Inspection Neck: Normal Inspection Respiratory: Lungs Clear Cardiovascular: Regular Rate, Rhythm Gastrointestinal: Other (distended with ascites wave. No significant abdominal tenderness was appreciated.) Back: Normal Inspection Extremity: Normal Range of Motion Neurologic/Psychiatric: No Motor/Sensory Deficits Skin: Normal Color Warm/Dry Progress/Results/Core Measures Results/Orders Lab Results Laboratory Tests Test 03/19/16 15:15 03/19/16 16:05 Range/Units Alanine Aminotransferase (ALT/SGPT) 29 0-55 U/L Albumin 2.7 L 3.2-4.5 G/DL Alkaline Phosphatase 97 40-136 U/L Ammonia 71 H 11-32 UMOL/L Anion Gap 13 5-14 MMOL/L Aspartate Amino Transf (AST/SGOT) 27 5-34 U/L BUN/Creatinine Ratio 20 Basophils # (Auto) 0.0 0.0-0.1 10^3/uL Basophils (%) (Auto) 1 0-10 % Blood Urea Nitrogen 15 7-18 MG/DL Calcium Level 8.0 L 8.5-10.1 MG/DL Carbon Dioxide Level 17 L 21-32 MMOL/L Chloride Level 99 98-107 MMOL/L Creatinine 0.76 0.60-1.30 MG/DL Eosinophils # (Auto) 0.2 0.0-0.3 10^3/uL Eosinophils (%) (Auto) 3 0-10 % Estimat Glomerular Filtration Rate > 60 Glucose Level 191 H 70-105 MG/DL Hematocrit 27 L 35-52 % Hemoglobin 9.3 L 11.5-16.0 G/DL INR Comment 1.6 H 0.8-1.4 Lipase 42 8-78 U/L Lymphocytes # (Auto) 1.0 1.0-4.0 X 10^3 Lymphocytes (%) (Auto) 16 12-44 % Mean Corpuscular Hemoglobin 30 25-34 PG Mean Corpuscular Hemoglobin Concent 34 32-36 G/DL Mean Corpuscular Volume 87 80-99 FL Mean Platelet Volume 10.1 7.4-10.4 FL Monocytes # (Auto) 0.8 0.0-1.0 X 10^3 Monocytes (%) (Auto) 13 H 0-12 % Neutrophils # (Auto) 4.1 1.8-7.8 X 10^3 Neutrophils (%) (Auto) 67 42-75 % Platelet Count 169 130-400 10^3/uL Potassium Level 4.0 3.6-5.0 MMOL/L Prothrombin Time 18.9 H 12.2-14.7 SEC Red Blood Count 3.14 L 4.35-5.85 10^6/uL Red Cell Distribution Width 15.7 H 10.0-14.5 % Sodium Level 129 L 135-145 MMOL/L Total Bilirubin 2.5 H 0.1-1.0 MG/DL Total Protein 4.9 L 6.4-8.2 G/DL White Blood Count 6.1 4.3-11.0 10^3/uL Urine Bacteria NEGATIVE /HPF Urine Bilirubin 2+ H NEGATIVE Urine Casts NONE /LPF Urine Clarity SLIGHTLY CLOUDY Urine Color MARTY H Urine Crystals PRESENT H /LPF Urine Culture Indicated NO Urine Glucose (UA) 1+ H NEGATIVE Urine Ketones NEGATIVE NEGATIVE Urine Leukocyte Esterase 1+ H NEGATIVE Urine Mucus LARGE H /LPF Urine Nitrite NEGATIVE NEGATIVE Urine Protein 2+ H NEGATIVE Urine RBC NONE /HPF Urine RBC (Auto) NEGATIVE NEGATIVE Urine Specific [place] 1.020 1.016-1.022 Urine Squamous Epithelial Cells 10-25 H /HPF Urine Uric Acid Crystals FEW H /LPF Urine Urobilinogen 12 H NORMAL MG/DL Urine WBC RARE /HPF Urine pH 6 5-9 My Orders Orders-JENNY BLACK MD Ammonia (03/19/16 15:27) Cbc With Automated Diff (03/19/16 15:27) Comprehensive Metabolic Panel (03/19/16 15:27) Protime With Inr (03/19/16 15:27) Lipase (03/19/16 15:27) Ua Culture If Indicated (03/19/16 15:27) Vital Signs/I&O Vital Sign - Last 12Hours 03/19/16 15:08 Temp 98.8 Pulse 113 Resp 20 B/P 127/86 Pulse Ox 100 O2 Delivery Room Air Blood Pressure Mean: 100 Progress Note : Time: 17:23 Progress Note The patient's ammonia level was 71. Patient's INR was 1.6. I discussed patient 's presentation with Dr. Doyle was kind enough to admit the patient. Orders were written for lactulose. The patient was admitted and orders were written. Departure Communication Time/Spoke to Admitting Phy: 17:[address] Doyle. Impression Impression: Primary Impression: Hepatic encephalopathy Disposition: ADMITTED INPATIENT Condition: Unchanged Decision to Admit Reason: Admit from ER (General) Decision to Admit/Date: Mar 19, 2016 Time/Decision to Admit Time: 17:24 Departure-Patient Inst. Referrals: [facility] (PCP/Family) Primary Care Physician JENNY BLACK MD Mar 19, 2016 15:34
[2016-03-19 15:41] LABS: BASOPHILS % (AUTO) 1 % (0-10); EOSINOPHILS # (AUTO) 0.2 10^3/uL (0.0-0.3); EOSINOPHILS % (AUTO) 3 % (0-10); LYMPHOCYTES % (AUTO) 16 % (12-44); MEAN CORPUSCULAR HEMOGLOBIN 30 PG (25-34); MEAN CORPUSCULAR HGB CONC 34 G/DL (32-36); MEAN CORPUSCULAR VOLUME 87 FL (80-99); MEAN PLATELET VOLUME 10.1 FL (7.4-10.4); MONOCYTES # (AUTO) 0.8 X 10^3 (0.0-1.0); MONOCYTES % (AUTO) 13 % (0-12); NEUTROPHILS # (AUTO) 4.1 X 10^3 (1.8-7.8); NEUTROPHILS % (AUTO) 67 % (42-75); PLATELET COUNT 169 10^3/uL (130-400); RED BLOOD COUNT 3.14 10^6/uL (4.35-5.85); RED CELL DISTRIBUTION WIDTH 15.7 % (10.0-14.5); WHITE BLOOD COUNT 6.1 10^3/uL (4.3-11.0)
[2016-03-19 15:44] LABS: INR 1.6 (0.8-1.4); PROTHROMBIN TIME PATIENT 18.9 SEC (12.2-14.7)
[2016-03-19 15:52] LABS: ALANINE AMINOTRANSFERASE 29 U/L (0-55); ALBUMIN 2.7 G/DL (3.2-4.5); AMMONIA 71 UMOL/L (11-32); ANION GAP 13 MMOL/L (5-14); ASPARTATE AMINO TRANSFERASE 27 U/L (5-34); BILIRUBIN,TOTAL 2.5 MG/DL (0.1-1.0); BLOOD UREA NITROGEN 15 MG/DL (7-18); BUN/CREATININE RATIO 20; CARBON DIOXIDE 17 MMOL/L (21-32); CHLORIDE 99 MMOL/L (98-107); CREATININE SERUM 0.76 MG/DL (0.60-1.30); GFR ESTIMATED > 60; GLUCOSE 191 MG/DL (70-105); LIPASE 42 U/L (8-78); SODIUM 129 MMOL/L (135-145); TOTAL PROTEIN 4.9 G/DL (6.4-8.2)
[2016-03-19 16:17] LABS: KETONES,URINE NEGATIVE (NEGATIVE); LEUKOCYTE ESTERASE ,URINE 1+ (NEGATIVE); NITRITE,URINE NEGATIVE (NEGATIVE); PH,URINE 6 (5-9); PROTEIN,URINE 2+ (NEGATIVE); UROBILINOGEN,URINE 12 MG/DL (NORMAL)
[2016-03-19 16:27] LABS: BILIRUBIN,URINE 2+ (NEGATIVE); WBC,URINE RARE /HPF
[2016-03-19 16:28] LABS: URIC ACID CRYSTALS,URINE FEW /LPF
[2016-03-19] MEDS ORDERED: NS IV 1000 ML 1,000 ML ONE (18:43)
[2016-03-19] MEDS ORDERED: LACT20SO2 PO (18:58)
[2016-03-19] MEDS ORDERED: SPIR100T PO (18:58)
[2016-03-19 20:20] VITALS: BP 148/84
[2016-03-20] VITALS: BP 129/75
[2016-03-20 04:00] VITALS: BP 115/68
[2016-03-20 05:54] LABS: BASOPHILS % (AUTO) 1 % (0-10); EOSINOPHILS # (AUTO) 0.3 10^3/uL (0.0-0.3); EOSINOPHILS % (AUTO) 4 % (0-10); LYMPHOCYTES # (AUTO) 1.3 X 10^3 (1.0-4.0); LYMPHOCYTES % (AUTO) 21 % (12-44); MEAN CORPUSCULAR HEMOGLOBIN 29 PG (25-34); MEAN CORPUSCULAR HGB CONC 34 G/DL (32-36); MEAN CORPUSCULAR VOLUME 86 FL (80-99); MEAN PLATELET VOLUME 10.1 FL (7.4-10.4); MONOCYTES # (AUTO) 0.8 X 10^3 (0.0-1.0); MONOCYTES % (AUTO) 12 % (0-12); NEUTROPHILS # (AUTO) 3.9 X 10^3 (1.8-7.8); NEUTROPHILS % (AUTO) 62 % (42-75); PLATELET COUNT 207 10^3/uL (130-400); RED BLOOD COUNT 3.39 10^6/uL (4.35-5.85); RED CELL DISTRIBUTION WIDTH 15.8 % (10.0-14.5); WHITE BLOOD COUNT 6.2 10^3/uL (4.3-11.0)
[2016-03-20 06:17] LABS: ALANINE AMINOTRANSFERASE 35 U/L (0-55); ALBUMIN 2.8 G/DL (3.2-4.5); ANION GAP 9 MMOL/L (5-14); ASPARTATE AMINO TRANSFERASE 27 U/L (5-34); BILIRUBIN,TOTAL 2.5 MG/DL (0.1-1.0); BLOOD UREA NITROGEN 13 MG/DL (7-18); BUN/CREATININE RATIO 18; CALCIUM 8.2 MG/DL (8.5-10.1); CARBON DIOXIDE 20 MMOL/L (21-32); CHLORIDE 100 MMOL/L (98-107); CREATININE SERUM 0.72 MG/DL (0.60-1.30); GFR ESTIMATED > 60; GLUCOSE 122 MG/DL (70-105); SODIUM 129 MMOL/L (135-145); TOTAL PROTEIN 5.6 G/DL (6.4-8.2)
[2016-03-20] MEDS ORDERED: FLU TRIvalent (5 YOA+) 2016-17 (AFLURIA) 0.5 ML IM ONE (07:15)
[2016-03-20] MEDS ORDERED: NS IV 1000 ML 1,000 ML IV SCH (07:15)
[2016-03-20 08:00] VITALS: BP 123/78
[2016-03-20] MEDS: LACTULOSE SYRUP 10GM/15ML (ENULOSE) 30ML UDC PO SCH ×4 (08:43→20:58)
[2016-03-20] MEDS ORDERED: CATHETER FLUSH 10 ML SYR IV PRN (10:45)
[2016-03-20 12:35] VITALS: BP 134/92
[2016-03-20] MEDS: MULTIVIT W/MINERALS TAB (THERAGRAN M) PO SCH (13:01)
[2016-03-20] MEDS: ONDANSETRON 4 MG/2 ML (SDV) Z0FRAN IVP PRN (13:01)
[2016-03-20] MEDS: SPIRONOLACTONE 100 MG (ALDACTONE) TABLET PO SCH (13:01)
[2016-03-20] MEDS: buPROPion SR 150 MG (WELLBUTRIN SR) TAB PO SCH (13:01)
[2016-03-20] MEDS: CATHETER FLUSH 10 ML SYR IV SCH ×2 (13:01→20:58)
[2016-03-20] MEDS: PANTOPRAZOLE 40 MG (PROTONIX) TAB PO SCH (13:01)
[2016-03-20] MEDS: FUROSEMIDE 20 MG (LASIX) TAB PO SCH (13:01)
--- NOTE | 2016-03-20 13:15 | History & Physicial (CHS) ---
HPI History of Present Illness: 55 yo F with known ESLD brought here by her for confusion. Patient had paracentesis on . states that he started to notice that she was getting more confused Monday morning. She is confused this AM but able to answer simple questions. Denies any pain or fever. states that she had a couple bouts of diarrhea so she stopped taking her lactulose earlier this week. He states that she has had about 2 stools since Monday. They have appt on this Monday at for evaluation by liver transplant team. Source: patient, family (), old records Exam Limitations: clinical condition Date seen by provider: Mar 20, 2016 Attending Physician Evita Doyle MD PCP [facility] [place] Date of Admission Mar 19, 2016 at 17:20 Home Medications Home Medications Reviewed patient Home Medication Reconciliation Form Allergies Coded Allergies: No Known Drug Allergies (Unverified , 03/03/16) TQU-Yzqzeh-Latpmd Hx Patient Social History Marrital Status: Living Status: Lives with Alcohol Use: Denies Use Recreational Drug Use: No Smoking Status: Current Everyday Smoker Type Used: Cigarettes Recent Foreign Travel: Yes Contact w/other who traveled: No Recent Hopitalizations: Yes Recent Infectious Disease Expo: No Physical Abuse Screen: No Sexual Abuse: No Immunizations Up To Date Tetanus Booster (TDap): Unknown Past Medical History PMHx: Diabetes Mellitus Type 2 Arthritis Hyperlipidemia Cryptogenic cirrhosis PSH: cholecystectomy Family Medical History Significant Family History: Asthma, Heart Disease Family History: Cardiovascular disease 03 MOTHER Family history: Asthma 03 FATHER 09 SISTER Family history: Hypertension 03 FATHER Hypercholesterolemia 03 MOTHER Review of Systems (CHC) Constitutional: No chills, No fever, malaise EENTM: no symptoms reported Respiratory: no symptoms reportedNo cough, No dyspnea on exertion, No short of breath Cardiovascular: no symptoms reportedNo chest pain, edemaNo palpitations Gastrointestinal: abdominal pain (tense abdomen with diffuse tenderness at baseline with palpation) constipationNo hematemesis, No melena, nausea Genitourinary: no symptoms reportedNo dysuria, No frequency : No Musculoskeletal: no symptoms reported Skin: no symptoms reported Psychiatric/Neurological: No Symptoms Reported Reviewed Test Results Reviewed Test Results Lab Laboratory Tests Test 03/19/16 15:15 03/19/16 16:05 03/20/16 05:35 03/20/16 05:40 Range/Units Alanine Aminotransferase (ALT/SGPT) 29 35 0-55 U/L Albumin 2.7 L 2.8 L 3.2-4.5 G/DL Alkaline Phosphatase 97 105 40-136 U/L Ammonia 71 H 11-32 UMOL/L Anion Gap 13 9 5-14 MMOL/L Aspartate Amino Transf (AST/SGOT) 27 27 5-34 U/L BUN/Creatinine Ratio 20 18 Basophils # (Auto) 0.0 0.0 0.0-0.1 10^3/uL Basophils (%) (Auto) 1 1 0-10 % Blood Urea Nitrogen 15 13 7-18 MG/DL Calcium Level 8.0 L 8.2 L 8.5-10.1 MG/DL Carbon Dioxide Level 17 L 20 L 21-32 MMOL/L Chloride Level 99 100 98-107 MMOL/L Creatinine 0.76 0.72 0.60-1.30 MG/DL Eosinophils # (Auto) 0.2 0.3 0.0-0.3 10^3/uL Eosinophils (%) (Auto) 3 4 0-10 % Estimat Glomerular Filtration Rate > 60 > 60 Glucose Level 191 H 122 H 70-105 MG/DL Hematocrit 27 L 29 L 35-52 % Hemoglobin 9.3 L 9.8 L 11.5-16.0 G/DL INR Comment 1.6 H 0.8-1.4 Lipase 42 8-78 U/L Lymphocytes # (Auto) 1.0 1.3 1.0-4.0 X 10^3 Lymphocytes (%) (Auto) 16 21 12-44 % Mean Corpuscular Hemoglobin 30 29 25-34 PG Mean Corpuscular Hemoglobin Concent 34 34 32-36 G/DL Mean Corpuscular Volume 87 86 80-99 FL Mean Platelet Volume 10.1 10.1 7.4-10.4 FL Monocytes # (Auto) 0.8 0.8 0.0-1.0 X 10^3 Monocytes (%) (Auto) 13 H 12 0-12 % Neutrophils # (Auto) 4.1 3.9 1.8-7.8 X 10^3 Neutrophils (%) (Auto) 67 62 42-75 % Platelet Count 169 207 130-400 10^3/uL Potassium Level 4.0 4.0 3.6-5.0 MMOL/L Prothrombin Time 18.9 H 12.2-14.7 SEC Red Blood Count 3.14 L 3.39 L 4.35-5.85 10^6/uL Red Cell Distribution Width 15.7 H 15.8 H 10.0-14.5 % Sodium Level 129 L 129 L 135-145 MMOL/L Total Bilirubin 2.5 H 2.5 H 0.1-1.0 MG/DL Total Protein 4.9 L 5.6 L 6.4-8.2 G/DL White Blood Count 6.1 6.2 4.3-11.0 10^3/uL Urine Bacteria NEGATIVE /HPF Urine Bilirubin 2+ H NEGATIVE Urine Casts NONE /LPF Urine Clarity SLIGHTLY CLOUDY Urine Color MARTY H Urine Crystals PRESENT H /LPF Urine Culture Indicated NO Urine Glucose (UA) 1+ H NEGATIVE Urine Ketones NEGATIVE NEGATIVE Urine Leukocyte Esterase 1+ H NEGATIVE Urine Mucus LARGE H /LPF Urine Nitrite NEGATIVE NEGATIVE Urine Protein 2+ H NEGATIVE Urine RBC NONE /HPF Urine RBC (Auto) NEGATIVE NEGATIVE Urine Specific Lyndon 1.020 1.016-1.022 Urine Squamous Epithelial Cells 10-25 H /HPF Urine Uric Acid Crystals FEW H /LPF Urine Urobilinogen 12 H NORMAL MG/DL Urine WBC RARE /HPF Urine pH 6 5-9 Physical Exam-([facility]) Physical Exam Vital Signs VS - Last 72 Hours, by Label 03/19/16 03/19/16 03/19/16 03/19/16 15:08 18:12 19:00 20:20 Temp 98.8 98.4 Pulse 113 106 107 Resp 20 18 20 B/P 127/86 148/84 Pulse Ox 100 98 100 O2 Delivery Room Air Room Air Room Air Room Air 03/20/16 03/20/16 03/20/16 03/20/16 00:00 04:00 08:00 09:00 Temp 100.2 98.8 98.3 Pulse 110 102 102 Resp 18 18 18 B/P 129/75 115/68 123/78 Pulse Ox 98 97 97 O2 Delivery Room Air Room Air Room Air Room Air 03/20/16 12:35 Temp 98.8 Pulse 107 Resp 20 B/P 134/92 Pulse Ox 99 O2 Delivery Room Air Capillary Refill : Less Than 3 SecondsLess Than 3 Seconds General Appearance: no apparent distress HEENT: PERRL/EOMINo scleral icterus (R), No scleral icterus (L) Neck: non-tender full range of motion supple Respiratory: chest non-tender lungs clear normal breath sounds no respiratory distress no accessory muscle use Cardiovascular: regular rate, rhythm no gallop no JVD no murmur Gastrointestinal: normal bowel sounds hepatomegaly spleenomegaly other ( diffuse tenderness to palpation that is chronic, full abdomen, no rebound) Back: normal inspection no CVA tenderness Extremities: normal range of motion non-tender normal inspection no calf tenderness pedal edema (2+) 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 alert other Skin: normal color warm/dry Lymphatic: no adenopathy Assessment/Plan Assessment/Plan Admission Dx Hepatic Encephalopathy ESLD Hyponatremia Normocytic Anemia of Chronic disease Chronic Pain Plan 55 yo F admitted for altered mental status most likely related to ESLD Hepatic Encephalopathy and Ascites - Elevated Ammonia, Discussed the importance of lactulose with and he states that she stopped earlier this week - Lactulose QID - Strict low salt diet, 2L fluid restriction ESLD - elevated INR and bilirubin, monitor for signs of bleeding Hyponatremia: chronic, patient's baseline Normocytic Anemia of Chronic disease: at baseline Chronic Pain - Continued home medications Dispo: Continue admission DVT PPX: SCDs FEN: Low salt diet, 2L fluid restriction Diagnosis/Problems: Clinical Quality Measures DVT/VTE Risk/Contraindication: Risk Factor Score Per Nursin RFS Level Per Nursing on Admit: 3=High Copy Copies To 1: Felipe ORTIZ HOLLY R MD Mar 20, 2016 13:15
[2016-03-20 16:06] VITALS: BP 111/81
[2016-03-20 20:06] VITALS: BP 113/72
[2016-03-21] VITALS: BP 123/76
[2016-03-21] MEDS: CATHETER FLUSH 10 ML SYR IV SCH ×2 (01:53→13:36)
[2016-03-21] MEDS: ONDANSETRON 4 MG/2 ML (SDV) Z0FRAN IVP PRN ×2 (01:53→06:20)
[2016-03-21 04:00] VITALS: BP 106/62
[2016-03-21 06:02] LABS: BASOPHILS % (AUTO) 1 % (0-10); EOSINOPHILS # (AUTO) 0.1 10^3/uL (0.0-0.3); EOSINOPHILS % (AUTO) 2 % (0-10); LYMPHOCYTES # (AUTO) 0.9 X 10^3 (1.0-4.0); LYMPHOCYTES % (AUTO) 13 % (12-44); MEAN CORPUSCULAR HEMOGLOBIN 29 PG (25-34); MEAN CORPUSCULAR HGB CONC 34 G/DL (32-36); MEAN CORPUSCULAR VOLUME 86 FL (80-99); MEAN PLATELET VOLUME 10.3 FL (7.4-10.4); MONOCYTES # (AUTO) 0.9 X 10^3 (0.0-1.0); MONOCYTES % (AUTO) 14 % (0-12); NEUTROPHILS # (AUTO) 4.6 X 10^3 (1.8-7.8); NEUTROPHILS % (AUTO) 70 % (42-75); PLATELET COUNT 214 10^3/uL (130-400); RED BLOOD COUNT 3.37 10^6/uL (4.35-5.85); RED CELL DISTRIBUTION WIDTH 16.1 % (10.0-14.5); WHITE BLOOD COUNT 6.5 10^3/uL (4.3-11.0)
[2016-03-21] MEDS: MULTIVIT W/MINERALS TAB (THERAGRAN M) PO SCH (06:20)
[2016-03-21 06:26] LABS: ALANINE AMINOTRANSFERASE 36 U/L (0-55); ALBUMIN 2.8 G/DL (3.2-4.5); ANION GAP 11 MMOL/L (5-14); ASPARTATE AMINO TRANSFERASE 29 U/L (5-34); BILIRUBIN,TOTAL 3.3 MG/DL (0.1-1.0); BLOOD UREA NITROGEN 13 MG/DL (7-18); BUN/CREATININE RATIO 15; CARBON DIOXIDE 18 MMOL/L (21-32); CHLORIDE 99 MMOL/L (98-107); CREATININE SERUM 0.86 MG/DL (0.60-1.30); GFR ESTIMATED > 60; GLUCOSE 146 MG/DL (70-105); POTASSIUM 4.3 MMOL/L (3.6-5.0); SODIUM 128 MMOL/L (135-145); TOTAL PROTEIN 5.4 G/DL (6.4-8.2)
[2016-03-21 08:15] VITALS: BP 121/81
[2016-03-21] MEDS: PANTOPRAZOLE 40 MG (PROTONIX) TAB PO SCH (08:41)
[2016-03-21] MEDS: buPROPion SR 150 MG (WELLBUTRIN SR) TAB PO SCH (08:41)
[2016-03-21] MEDS: FUROSEMIDE 20 MG (LASIX) TAB PO SCH (08:41)
[2016-03-21] MEDS: SPIRONOLACTONE 100 MG (ALDACTONE) TABLET PO SCH (08:41)
[2016-03-21] MEDS: LACTULOSE SYRUP 10GM/15ML (ENULOSE) 30ML UDC PO SCH ×2 (08:41→13:36)
[2016-03-21] MEDS ORDERED: OXYC5TAB71 PO (09:11)
[2016-03-21] MEDS ORDERED: POLY255P PO (09:18)
[2016-03-21] MEDS ORDERED: LACT10SO PO (09:18)
[2016-03-21] MEDS ORDERED: PROM25TA14 PO (09:18)
[2016-03-21] MEDS ORDERED: PANT40TA2 PO (09:20)
[2016-03-21 12:00] VITALS: BP 125/74
--- NOTE | 2016-03-21 14:34 | Discharge Instructions ---
Discharge [facility] Discharge Medications New, Converted or Re-Newed RX: Other Continued Medications: Bupropion HCl (Wellbutrin Xl) 150 Mg Tab.er.24h 150 MG PO DAILY TAB Ergocalciferol (Vitamin D2) (Vitamin D2) 50,000 Unit Capsule 63487 UNITS PO WeSa TAB Lactulose (Lactulose) 10 Gm/15 Ml Solution 15 ML PO TID EA Metformin HCl (Metformin HCl ER) 500 Mg Tab.er.24h 1000 MG PO BID WITH MEALS TAKES 2 (500MG) TABLETS TAB Multivitamin (Daily Multiple Vitamin) 1 Each Tablet 1 TAB PO DAILY TAB Ondansetron HCl (Ondansetron HCl) 4 Mg Tablet 4 MG PO TID PRN NAUSEA/VOMITING TAB Oxycodone HCl (Oxycodone HCl) 5 Mg Tablet 5 MG PO BID PRN PAIN TAB Pantoprazole Sodium (Protonix) 40 Mg Tablet.dr 40 MG PO DAILY TAB Polyethylene Glycol 3350 (Polyethylene Glycol 3350) 255 Gm Powder 17 GM PO DAILY PRN CONSTIPATION EA Promethazine HCl (Promethazine Tablet) 25 Mg Tablet 12.5 MG PO BID TAKES 1/2 (25MG) TABLET PRN NAUSEA TAB Spironolactone (Aldactone) 100 Mg Tablet 100 MG PO DAILY TAB Patient Instructions Goal/Follow Up Appt: Anna MondayMar 28 at 9:20 Patient Instructions: Please take the lactulose - and all meds - as prescribed. You should have 2-4 loos BM's per dday, no more than 6. Call the clinic if you need help titrating the dose so that you are at this goal. Return to The Hospital For: increased dizziness, confusion, lethargy Activity & Diet Discharge Diet: Eat Small Frequent Meals (2L fluid restriction) Activity as Tolerated: Yes Orders-Post D/C & Referrals Pneu Vac Indicated: Yes Copy Copies To 1: BLAKE FARR APRN, MD Mar 21, 2016 2:34 pm
--- NOTE | 2016-03-23 09:38 | Physician Query-Final Dx ---
CRISTIN FERMIN 03/23/16 0938: Final Diagnosis Give Final Diagnosis Please give Final Diagnosis BLAKE GONZALEZ MD 04/05/16 1101: Final Diagnosis Give Final Diagnosis Hepatic Encephalopathy and Ascites ESLD Hyponatremia: chronic, patient's baseline Normocytic Anemia of Chronic disease: at baseline Chronic Pain CRISTIN FERMIN Mar 23, 2016 09:38 BLAKE GONZALEZ MD Apr 05, 2016 11:01
--- NOTE | 2016-04-05 10:56 | Discharge Summary ---
Diagnosis/Chief Complaint Date of Admission Mar 19, 2016 at 17:20 Date of Discharge Mar 21, 2016 at 14:57 Admission Diagnosis Admission Diagnosis Hepatic Encephalopathy ESLD Hyponatremia Normocytic Anemia of Chronic disease Chronic Pain Discharge Diagnosis Hepatic Encephalopathy and Ascites - Elevated Ammonia, Discussed the importance of lactulose with and he states that she stopped earlier this week - Lactulose QID - Strict low salt diet, 2L fluid restriction DIS - improved, mentation much improved ESLD - elevated INR and bilirubin, monitor for signs of bleeding Hyponatremia: chronic, patient's baseline Normocytic Anemia of Chronic disease: at baseline Chronic Pain - Continued home medications Dispo: Continue admission DVT PPX: SCDs FEN: Low salt diet, 2L fluid restriction Long discussion with david and her partner regarding her prognosis, which is quite poor at this point. They will go to on Monday (4 days from now), and then they will decide which path they want to go on from there. I did offer them the option of hospice, which they are considering. Her father is currently on hospice after an unexpected illness as well. They currently are scheduled to folllow up with Anna on Monday and know I am also available for consult should the need arise. Chief Complaint/HPI Chief Complaint/HPI 55 yo F with known ESLD brought here by her for confusion. Patient had paracentesis on . states that he started to notice that she was getting more confused Monday morning. She is confused this AM but able to answer simple questions. Denies any pain or fever. states that she had a couple bouts of diarrhea so she stopped taking her lactulose earlier this week. He states that she has had about 2 stools since Monday. They have appt on this Monday at for evaluation by liver transplant team. Discharge Summary-Simple/Stand Consultations Discharge Physical Examination Allergies: Coded Allergies: No Known Drug Allergies (Unverified , 03/03/16) General Appearance: Alert, Oriented X3, Cooperative, No Acute Distress Respiratory: Clear to Auscultation, Normal Air Movement Cardiovascular: Regular Rate, Normal S1, Normal S2, No Murmurs, Gallops, Rubs Abdominal: Normal Bowel Sounds, Other (large ascites) Extremities: No Cyanosis, Other (1+edema bilat) Skin: No Rashes, Other (jaundice) Neuro: Normal Speech Psych/Mental Status: Mental Status NL, Mood NL Hospital Course See final discharge diagnosis. Discharge Instructions to patient/family Please see electonic discharge instructions given to patient. Discharge Medications Reviewed and agree with Discharge Medication list on patient's Discharge Instruction sheet Clinical Quality Measures DVT/VTE Risk/Contraindication: Risk Factor Score Per Nursin RFS Level Per Nursing on Admit: 3=High Copy Copies To 1: BLAKE FARR APRN, MD Apr 05, 2016 10:56
== END 2016-03-21 14:57 | disposition home or self-care (01) | DRG 442 ==
LOC: EDUNIT# 14:56 → ER 14:57 → 4TH 17:20
PROVIDERS: ADMIT Family Medicine; ATTEND Family Medicine
DX: K72.90 Hepatic failure, unspecified without coma (principal); E87.1 Hypo-osmolality and hyponatremia; G89.29 Other chronic pain; D63.8 Anemia in other chronic diseases classified elsewhere; R19.8 Other specified symptoms and signs involving the digestive system and abdomen; F17.210 Nicotine dependence, cigarettes, uncomplicated; E11.9 Type 2 diabetes mellitus without complications; E78.5 Hyperlipidemia, unspecified; M19.90 Unspecified osteoarthritis, unspecified site; K74.69 Other cirrhosis of liver; F41.9 Anxiety disorder, unspecified; F32.9 Major depressive disorder, single episode, unspecified
CPT/HCPCS: 36415; 80053; 81000; 82140; 83690; 85025; 85610

== ENCOUNTER 2016-03-23 00:30 | Inpatient (IN) | payer MEDICAID ==
[~2016-03-23] VITALS: Ht 167.6 cm; Wt 84.9 kg
[~2016-03-23 00:30] MED LIST changes: +LACT10SO PO; +OXYC5TAB71 PO; +PROM25TA14 PO; +SPIR100T PO
--- OUTSIDE RECORDS SUMMARY | 2016-03-23 00:36 | XMS REPORT | Continuity of Care Document ---
Author Author [facility] Organization [facility] Address Unknown Phone Unavailable Care Team Providers Care Scowman Name Role Phone Mouna Wang PCP [phone] Source Comments Some departments are not documenting in the electronic medical record. If you do not see the information that you expected, contact Release of Information in the Health Information Management department at [phone] for further assistance in locating additional records.[facility] Active Allergies and Adverse Reactions No [...] mg tablet daily. Take with food. 16 Active Problems Problem Noted Date Ascites of liver 11/23/2015 Type 2 diabetes mellitus without complication (HCC) 11/23/2015 Tobacco abuse 11/23/2015 Localized edema 11/23/2015 Cirrhosis, cryptogenic (HCC) 11/20/2015 Most Recent Encounters Date Type Specialty Providers Description 03/22/2016 Telephone Transplant Surgery Renetta Johnston MD Patient Reminder Call - Called pt to confirm appt w/ Dr. Johnston on 03/25/16 @ 10:30am, nalm. Social History Tobacco Use Types Packs/Day Years [...] Appointment Transplant Surgery Renetta Johnston MD [address] [facility] [address] [place] [address] [phone] (Fax) Health Maintenance Due Date Last Done [...]
[2016-03-23 00:58] LABS: BASOPHILS % (AUTO) 0 % (0-10); EOSINOPHILS % (AUTO) 0 % (0-10); LYMPHOCYTES # (AUTO) 1.1 X 10^3 (1.0-4.0); LYMPHOCYTES % (AUTO) 9 % (12-44); MEAN CORPUSCULAR HEMOGLOBIN 29 PG (25-34); MEAN CORPUSCULAR HGB CONC 34 G/DL (32-36); MEAN CORPUSCULAR VOLUME 86 FL (80-99); MEAN PLATELET VOLUME 10.4 FL (7.4-10.4); MONOCYTES # (AUTO) 1.5 X 10^3 (0.0-1.0); MONOCYTES % (AUTO) 13 % (0-12); NEUTROPHILS # (AUTO) 9.3 X 10^3 (1.8-7.8); NEUTROPHILS % (AUTO) 78 % (42-75); PLATELET COUNT 254 10^3/uL (130-400); RED BLOOD COUNT 3.45 10^6/uL (4.35-5.85); RED CELL DISTRIBUTION WIDTH 16.1 % (10.0-14.5)
[2016-03-23 01:10] LABS: ALBUMIN 2.7 G/DL (3.2-4.5); BILIRUBIN,TOTAL 3.8 MG/DL (0.1-1.0); CALCIUM 8.2 MG/DL (8.5-10.1); CREATININE SERUM 1.07 MG/DL (0.60-1.30); MAGNESIUM 1.8 MG/DL (1.8-2.4); POTASSIUM 5.1 MMOL/L (3.6-5.0); TOTAL PROTEIN 5.4 G/DL (6.4-8.2)
[2016-03-23] MEDS ORDERED: LACTULOSE SYRUP 10GM/15ML (ENULOSE) 30ML UDC PO ONE (02:00)
[2016-03-23 02:42] LABS: KETONES,URINE 1+ (NEGATIVE); LEUKOCYTE ESTERASE ,URINE 1+ (NEGATIVE); NITRITE,URINE NEGATIVE (NEGATIVE); PH,URINE 6 (5-9); PROTEIN,URINE 1+ (NEGATIVE); UROBILINOGEN,URINE 8 MG/DL (NORMAL)
[2016-03-23 02:53] LABS: BILIRUBIN,URINE 2+ (NEGATIVE)
[2016-03-23 02:54] LABS: WBC,URINE 0-2 /HPF
[2016-03-23 02:55] LABS: YEAST,URINE MODERATE /HPF
[2016-03-23] MEDS ORDERED: FUROSEMIDE 40 MG/4 ML INJ (LASIX) IVP ONE (04:00)
[2016-03-23 04:06] LABS: INR 1.8 (0.8-1.4); PROTHROMBIN TIME PATIENT 20.5 SEC (12.2-14.7)
--- NOTE | 2016-03-23 04:14 | ED General ---
General Chief Complaint: General Problems/Pain Stated Complaint: AMS,FALL Nursing Triage Note: pt stood up out of a chair et fell. c/o gen weakness et ams. dc'd from hospital yesterday with cirrhosis of liver. Nursing Sepsis Screen: No Definite Risk Source of Information: EMS, Family, Old Records Exam Limitations: Physical Impairments History of Present Illness Time Seen by Provider: 00:32 Initial Comments This 55-year-old woman presents to the emergency room by EMS with severely altered mental status. She was just dismissed from the hospital after being treated for hepatic encephalopathy. She was ambulatory yesterday when she followed up in the clinic but has progressively worsened throughout the day. She slid out of her recliner onto the floor which prompted the family to activate EMS. She is not following instructions and is not able to speak coherently. reports she has been taking her lactulose but developed these symptoms despite compliance. She has a notably distended abdomen from ascites. She vomited and received Zofran 4 mg from EMS. Allergies and Home Medications Allergies Coded Allergies: No Known Drug Allergies (Unverified , 03/03/16) Home Medications Bupropion HCl 150 Mg Tab.er.24h 150 MG PO DAILY (Reported) Ergocalciferol (Vitamin D2) 50,000 Unit Capsule 50,000 UNITS PO WeSa (Reported) Lactulose 10 Gm/15 Ml Solution 15 ML PO TID (Reported) Metformin HCl 500 Mg Tab.er.24h 1,000 MG PO BID WITH MEALS (Reported) TAKES 2 (500MG) TABLETS Multivitamin 1 Each Tablet 1 TAB PO DAILY (Reported) Ondansetron HCl 4 Mg Tablet 4 MG PO TID PRN PRN NAUSEA/VOMITING (Reported) Oxycodone HCl 5 Mg Tablet 5 MG PO BID PRN PRN PAIN (Reported) Pantoprazole Sodium 40 Mg Tablet.dr 40 MG PO DAILY (Reported) Polyethylene Glycol 3350 255 Gm Powder 17 GM PO DAILY PRN PRN CONSTIPATION ( Reported) Promethazine HCl 25 Mg Tablet 12.5 MG PO BID PRN PRN NAUSEA (Reported) TAKES 1/2 (25MG) TABLET Spironolactone 100 Mg Tablet 100 MG PO DAILY (Reported) Constitutional: see HPI EENTM: see HPI Respiratory: no symptoms reported Cardiovascular: no symptoms reported Gastrointestinal: see HPI Genitourinary: no symptoms reported : No Musculoskeletal: see HPI Skin: change in color Psychiatric/Neurological: See HPI Hematologic/Lymphatic: No Symptoms Reported Immunological/Allergic: no symptoms reported Past Uwbzgja-Mlubvo-Halpan Hx Patient Social History Alcohol Use: Denies Use Recreational Drug Use: No Smoking Status: Current Everyday Smoker Type Used: Cigarettes Recent Foreign Travel: No Contact w/Someone Who Travel: No Recent Infectious Disease Expo: No Recent Hopitalizations: Yes Physical Abuse Screen: No Sexual Abuse: No Immunizations Up To Date Tetanus Booster (TDap): Unknown Seasonal Allergies Seasonal Allergies: No Surgeries HX Surgeries: Yes (PARACENTESIS) Surgeries: Section, Gallbladder, Hysterectomy Respiratory Hx Respiratory Disorders: No Cardiovascular Hx Cardiac Disorders: No Neurological Hx Neurological Disorders: No Reproductive System Hx Reproductive Disorders: No Sexually Transmitted Disease: No HIV/AIDS: No Female Reproductive Disorders: Denies SPECIAL EDUCATOR History: Hysterectomy Genitourinary Hx Genitourinary Disorders: No Gastrointestinal Hx Gastrointestinal Disorders: Yes Gastrointestinal Disorders: Polyps, Cirrhosis Musculoskeletal Hx Musculoskeletal Disorders: Yes Musculoskeletal Disorders: Arthritis Endocrine Hx Endocrine Disorders: Yes Endocrine Disorders: Diabetes, Non-Insulin dep HEENT HX ENT Disorders: No Cancer Hx Cancer: No Psychosocial Hx Psychiatric Problems: Yes Behavioral Health Disorders: Anxiety, Depression Integumentary HX Skin/Integumentary Disorder: No Blood Transfusions Hx Blood Disorders: No Adverse Reaction to a Blood Tr: No Family Medical History Significant Family History: Asthma, Heart Disease Family Medial History: Cardiovascular disease 03 MOTHER Family history: Asthma 03 FATHER 09 SISTER Family history: Hypertension 03 FATHER Hypercholesterolemia 03 MOTHER Physical Exam Vital Signs Vital Sign - Last 12Hours 03/23/16 03/23/16 00:34 04:45 Temp 97.6 Pulse 102 Resp 20 B/P 127/94 Pulse Ox 97 O2 Delivery Room Air Capillary Refill : Less Than 3 Seconds General Appearance: WD/WN Moderate Distress HEENT: PERRL/EOMI TMs Normal Other (Oropharynx dry. Slight scleral icterus) Neck: Normal Inspection Respiratory: Lungs Clear Normal Breath Sounds No Accessory Muscle Use No Respiratory Distress Cardiovascular: Regular Rate, Rhythm No Edema No Murmur Gastrointestinal: Normal Bowel Sounds Non Tender Distended Back: Normal Inspection Neurologic/Psychiatric: Alert Disoriented x3 Motor Weakness Skin: Warm/Dry Jaundice Progress/Results/Core Measures Results/Orders Lab Results Laboratory Tests Test 03/23/16 00:35 03/23/16 02:30 03/23/16 06:53 Range/Units Alanine Aminotransferase (ALT/SGPT) 38 0-55 U/L Albumin 2.7 L 3.2-4.5 G/DL Alkaline Phosphatase 83 40-136 U/L Ammonia 106 H 11-32 UMOL/L Anion Gap 14 5-14 MMOL/L Aspartate Amino Transf (AST/SGOT) 29 5-34 U/L BUN/Creatinine Ratio 20 Basophils # (Auto) 0.0 0.0 0.0-0.1 10^3/uL Basophils (%) (Auto) 0 0 0-10 % Blood Urea Nitrogen 21 H 7-18 MG/DL Calcium Level 8.2 L 8.5-10.1 MG/DL Carbon Dioxide Level 17 L 21-32 MMOL/L Chloride Level 95 L 98-107 MMOL/L Creatinine 1.07 0.60-1.30 MG/DL Eosinophils # (Auto) 0.0 0.0 0.0-0.3 10^3/uL Eosinophils (%) (Auto) 0 0 0-10 % Estimat Glomerular Filtration Rate 54 Glucose Level 134 H 70-105 MG/DL Hematocrit 30 L 30 L 35-52 % Hemoglobin 10.1 L 10.3 L 11.5-16.0 G/DL INR Comment 1.8 H 0.8-1.4 Lymphocytes # (Auto) 1.1 1.2 1.0-4.0 X 10^3 Lymphocytes (%) (Auto) 9 L 10 L 12-44 % Magnesium Level 1.8 1.8-2.4 MG/DL Mean Corpuscular Hemoglobin 29 29 25-34 PG Mean Corpuscular Hemoglobin Concent 34 34 32-36 G/DL Mean Corpuscular Volume 86 87 80-99 FL Mean Platelet Volume 10.4 10.4 7.4-10.4 FL Monocytes # (Auto) 1.5 H 1.5 H 0.0-1.0 X 10^3 Monocytes (%) (Auto) 13 H 11 0-12 % Neutrophils # (Auto) 9.3 H 10.2 H 1.8-7.8 X 10^3 Neutrophils (%) (Auto) 78 H 79 H 42-75 % Platelet Count 254 241 130-400 10^3/uL Potassium Level 5.1 H 3.6-5.0 MMOL/L Prothrombin Time 20.5 H 12.2-14.7 SEC Red Blood Count 3.45 L 3.50 L 4.35-5.85 10^6/uL Red Cell Distribution Width 16.1 H 16.0 H 10.0-14.5 % Sodium Level 126 L 135-145 MMOL/L Total Bilirubin 3.8 H 0.1-1.0 MG/DL Total Protein 5.4 L 6.4-8.2 G/DL White Blood Count 12.0 H 12.9 H 4.3-11.0 10^3/uL Urine Bacteria TRACE /HPF Urine Bilirubin 2+ H NEGATIVE Urine Casts NONE /LPF Urine Clarity SLIGHTLY CLOUDY Urine Color MARTY H Urine Crystals NONE /LPF Urine Culture Indicated NO Urine Glucose (UA) NEGATIVE NEGATIVE Urine Ketones 1+ H NEGATIVE Urine Leukocyte Esterase 1+ H NEGATIVE Urine Mucus MODERATE H /LPF Urine Nitrite NEGATIVE NEGATIVE Urine Protein 1+ H NEGATIVE Urine RBC NONE /HPF Urine RBC (Auto) NEGATIVE NEGATIVE Urine Specific Wilmer 1.025 H 1.016-1.022 Urine Squamous Epithelial Cells 5-10 /HPF Urine Urobilinogen 8 H NORMAL MG/DL Urine WBC 0-2 /HPF Urine Yeast MODERATE H /HPF Urine pH 6 5-9 My Orders Orders-LV GROSSMAN MD Ammonia (03/23/16 00:39) Cbc With Automated Diff (03/23/16 00:39) Comprehensive Metabolic Panel (03/23/16 00:39) Magnesium (03/23/16 00:39) Ua Culture If Indicated (03/23/16 00:39) Saline Lock/Iv-Start (03/23/16 00:39) Catheter(Urinary) Insert & Ass 03,15 (03/23/16 00:39) Chest 1 View, Ap/Pa Only (03/23/16 00:39) Lactulose Oral Solution (Enulose Oral So (03/23/16 02:00) Furosemide Injection (Lasix Injection) (03/23/16 04:00) Protime With Inr (03/23/16 03:57) Medications Given in ED Current Medications Medications Dose Ordered Sig/Sorin Route Start Time Stop Time Status Last Admin Dose Admin Lactulose 30 gm ONCE ONCE PO 03/23/16 02:00 03/23/16 02:01 DC 03/23/16 02:28 30 GM Vital Signs/I&O Vital Sign - Last 12Hours 1/01/2703/23/16 03/23/16 00:34 04:45 04:50 Temp 97.6 96.3 Pulse 102 110 103 Resp 20 20 12 B/P 127/94 115/77 Pulse Ox 97 97 O2 Delivery Room Air Room Air Blood Pressure Mean: 105 Progress Note : Progress Note Case discussed with Dr. Shannon who agrees with admission as patient is not functional. We will give a dose of IV Lasix followed by slow normal saline IV fluid. A large dose of 45 mL lactulose was administered in the emergency room. I had a discussion about prognosis with the patient's . He reports she wishes to be DNR. We also discussed the possibility of hospice given her worsening prognosis. Diagnostic Imaging Diagonstic Imaging: Xray Plain Films/CT/US/NM/MRI: chest Comments Chest x-ray viewed by me. Report not yet available. No acute abnormalities were appreciated. Departure Impression Impression: Primary Impression: Hepatic encephalopathy Additional Impressions: Hyperkalemia Hyponatremia Hepatic failure Qualified Code: K72.10 - Chronic hepatic failure without coma Disposition: ADMITTED INPATIENT Condition: Improved Decision to Admit Reason: Admit from ER (General) Decision to Admit/Date: Mar 23, 2016 Time/Decision to Admit Time: 00:39 Departure-Patient Inst. Referrals: [facility] (PCP/Family) Primary Care Physician LV GROSSMAN MD Mar 23, 2016 04:13
[2016-03-23 04:50] VITALS: BP 115/77
[2016-03-23] MEDS ORDERED: NS IV 1000 ML 1,000 ML IV SCH (05:15)
[2016-03-23] MEDS: CATHETER FLUSH 10 ML SYR IV SCH ×2 (05:15→12:40)
[2016-03-23] MEDS ORDERED: CATHETER FLUSH 10 ML SYR IV PRN (05:15)
[2016-03-23] MEDS ORDERED: ONDANSETRON 4 MG/2 ML (SDV) Z0FRAN IV PRN (05:15)
[2016-03-23] MEDS: LACTULOSE SYRUP 10GM/15ML (ENULOSE) 30ML UDC PO SCH ×2 (05:20→12:00)
[2016-03-23 07:01] LABS: BASOPHILS % (AUTO) 0 % (0-10); EOSINOPHILS % (AUTO) 0 % (0-10); LYMPHOCYTES # (AUTO) 1.2 X 10^3 (1.0-4.0); LYMPHOCYTES % (AUTO) 10 % (12-44); MEAN CORPUSCULAR HEMOGLOBIN 29 PG (25-34); MEAN CORPUSCULAR HGB CONC 34 G/DL (32-36); MEAN CORPUSCULAR VOLUME 87 FL (80-99); MEAN PLATELET VOLUME 10.4 FL (7.4-10.4); MONOCYTES # (AUTO) 1.5 X 10^3 (0.0-1.0); MONOCYTES % (AUTO) 11 % (0-12); NEUTROPHILS # (AUTO) 10.2 X 10^3 (1.8-7.8); NEUTROPHILS % (AUTO) 79 % (42-75); PLATELET COUNT 241 10^3/uL (130-400); WHITE BLOOD COUNT 12.9 10^3/uL (4.3-11.0)
[2016-03-23 07:30] LABS: ALBUMIN 2.7 G/DL (3.2-4.5); BILIRUBIN,TOTAL 4.5 MG/DL (0.1-1.0); CALCIUM 8.2 MG/DL (8.5-10.1); CREATININE SERUM 1.09 MG/DL (0.60-1.30); TOTAL PROTEIN 5.3 G/DL (6.4-8.2)
[2016-03-23] MEDS ORDERED: FLU TRIvalent (5 YOA+) 2016-17 (AFLURIA) 0.5 ML IM ONE (07:45)
[2016-03-23 08:00] VITALS: BP_SYST 100; BP_SYST 131; BP_DIAS 61; BP_DIAS 69
--- NOTE | 2016-03-23 08:18 | Diagnostic Imaging Report ---
Portable upright radiograph of the chest. INDICATION: Weakness. FINDINGS: There are low lung volumes. The heart size is normal. No effusion or pneumothorax The mediastinum and chance appear unremarkable. IMPRESSION: Low lung volumes. Dictated by: Dictated on workstation # [id number]
--- NOTE | 2016-03-23 11:39 | Discharge Instructions ---
Discharge [facility] Discharge Medications New, Converted or Re-Newed RX: Other Discontinued Medications: Bupropion HCl (Wellbutrin Xl) 150 Mg Tab.er.24h 150 MG PO DAILY TAB Ergocalciferol (Vitamin D2) (Vitamin D2) 50,000 Unit Capsule 31694 UNITS PO WeSa TAB Lactulose (Lactulose) 10 Gm/15 Ml Solution 15 ML PO TID EA Metformin HCl (Metformin HCl ER) 500 Mg Tab.er.24h 1000 MG PO BID WITH MEALS TAKES 2 (500MG) TABLETS TAB Multivitamin (Daily Multiple Vitamin) 1 Each Tablet 1 TAB PO DAILY TAB Ondansetron HCl (Ondansetron HCl) 4 Mg Tablet 4 MG PO TID PRN NAUSEA/VOMITING TAB Oxycodone HCl (Oxycodone HCl) 5 Mg Tablet 5 MG PO BID PRN PAIN TAB Pantoprazole Sodium (Protonix) 40 Mg Tablet.dr 40 MG PO DAILY TAB Polyethylene Glycol 3350 (Polyethylene Glycol 3350) 255 Gm Powder 17 GM PO DAILY PRN CONSTIPATION EA Promethazine HCl (Promethazine Tablet) 25 Mg Tablet 12.5 MG PO BID TAKES 1/2 (25MG) TABLET PRN NAUSEA TAB Spironolactone (Aldactone) 100 Mg Tablet 100 MG PO DAILY TAB Patient Instructions Goal/Follow Up Appt: PLEASE STOP ALL OF MARGOT'S HOME MEDICATIONS. SHE IS TOO SEDATED TO BE ABLE TO SWALLOW PILLS SAFELY. HER HOSPICE PHYSICIAN WILL DESIGN A COMFORT CARE REGIMEN FOR HER. CHERELLE MOURA APRN WILL BE BY TO SEE HER NEXT WEEK. Patient Instructions: HOSPICE WILL PROVIDE MANY SERVICES FOR YOUR FAMILY. IF YOU HAVE QUESTIONS OR CONCERNS, PLEASE CALL [phone]. Return to The Hospital For: PLEASE CALL YOUR ON-CALL HOSPICE NURSE FOR ANY QUESTIONS AFTER HOURS. Activity & Diet Discharge Diet: No Restrictions Activity as Tolerated: Yes Copy Copies To 1: BLAKE KESSLER APRN, MD Mar 23, 2016 11:39 am
[2016-03-23 12:00] VITALS: BP 131/61
[2016-03-23 16:00] VITALS: BP 115/76
--- NOTE | 2016-03-31 15:26 | Physician Query-General Query ---
Physician Query-General Query to Physician: Please give final diagnosis thank you PHYSICIAN RESPONSE: Based on the clinical findings in the record, please respond to the query above on this document as an addendum. Possible, probable, or questionable diagnosis can be coded for INPATIENTS ONLY. Physician Response: Physician Response Hepatic Encephalopathy and Ascites ESLD Hyponatremia: chronic, patient's baseline PANCYTOPENIA 2/2 ESLD Chronic Pain If you have questions please contact: Draftsperson: Ext: Thank you for your time and cooperation. Clinical Still Photographer/Draftsperson This is a permanent part of the medical record NEAL IBARRA Mar 31, 2016 15:26 BLAKE GONZALEZ MD Apr 05, 2016 11:15
--- NOTE | 2016-04-05 11:07 | Short Stay Summary ---
HPI History of Present Illness: 55yo woman with history of ESLD (unknown etiology) presented to hospital with complaints of worsening hepatic encephalopathy. Per partner, patient had gone home Monday and was able to walk and talk, then was "tired" on Monday. Saw PCP who reassured them to go to appointment at on Monday. By Monday night, Maeve was again obtunded, so her partner brought her to ER. On morning after admssion, she remained sonorous in her respirations and was barely arousable. Source: family Exam Limitations: clinical condition Date seen by provider: Mar 23, 2016 Attending Physician Aurora Shannon MD PCP [facility] [place] Date of Admission Mar 23, 2016 at 03:59 Home Medications Home Medications Reviewed patient Home Medication Reconciliation Form Allergies Coded Allergies: No Known Drug Allergies (Unverified , 03/03/16) YRU-[place]-Wxjyog Hx Patient Social History Alcohol Use: Denies Use Recreational Drug Use: No Smoking Status: Former Smoker Type Used: Cigarettes Recent Foreign Travel: No Contact w/other who traveled: No Recent Hopitalizations: Yes Recent Infectious Disease Expo: No Physical Abuse Screen: No Sexual Abuse: No Immunizations Up To Date Tetanus Booster (TDap): Unknown Past Medical History PMHx: Diabetes Mellitus Type 2 Arthritis Hyperlipidemia Cryptogenic cirrhosis PSH: cholecystectomy Family Medical History Significant Family History: Asthma, Heart Disease Family History: Cardiovascular disease 03 MOTHER Family history: Asthma 03 FATHER 09 SISTER Family history: Hypertension 03 FATHER Hypercholesterolemia 03 MOTHER Review of Systems ([facility]) Constitutional: no symptoms reported Other UNABLE TO OBTAIN DUE TO CLINICAL CONDITION Physical Exam-([facility]) Physical Exam Vital Signs Capillary Refill : Less Than 3 Seconds General Appearance: WD/WN other (OBTUNDED, AROUSABLE TO DEEP STIMULATION) HEENT: PERRL/EOMI scleral icterus (R) scleral icterus (L) Neck: non-tender supple normal inspection Respiratory: lungs clear normal breath sounds no respiratory distress no accessory muscle use Cardiovascular: regular rate, rhythm no gallop no murmur JVD Gastrointestinal: distended (large ascites) Extremities: normal capillary refill pedal edema Neurologic/Psychiatric: other (difficult to arouse) Skin: jaundice Short Stay Diagnosis Discharge Diagnosis-Short Stay Admission Diagnosis Hepatic Encephalopathy and Ascites ESLD Hyponatremia 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 Due to her rapid decline, partner decided that it was time to proceed with hospice. He initially thought she would need to go to a NH , but then, her mother decided to have her receive care at her home. Her father the morning, and Maeve was transferred to her family's home that afternoon. We also arranged hospice services for them. Of note, Maeve later the day of discharge. Clinical Quality Measures DVT/VTE Risk/Contraindication: Risk Factor Score Per Nursin RFS Level Per Nursing on Admit: 4+=Very High Copy Copies To 1: PATRICK REIS JULIE A MD Apr 05, 2016 11:07
== END 2016-03-23 17:00 | disposition hospice, home (50) | DRG 442 ==
LOC: EDUNIT# 00:30 → ER 00:32 → 4TH 03:59
PROVIDERS: ADMIT Pediatrics; ATTEND Pediatrics
DX: K72.10 Chronic hepatic failure without coma (principal); E87.1 Hypo-osmolality and hyponatremia; E87.5 Hyperkalemia; F17.210 Nicotine dependence, cigarettes, uncomplicated; E11.9 Type 2 diabetes mellitus without complications; F41.9 Anxiety disorder, unspecified; F32.9 Major depressive disorder, single episode, unspecified; Z66 Do not resuscitate; D61.818 Other pancytopenia; G89.29 Other chronic pain
CPT/HCPCS: 36415; 51702; 71010; 80053; 81000; 82140; 83735; 85025; 85610; 96365